=== PATIENT | male | born 1960 | race Caucasian/White ===

== ENCOUNTER 2023-10-04 13:08 | Inpatient (IN) | payer OTHER, SELFPAY ==
[2023-10-04 09:32] VITALS: BP 149/79
--- NOTE | 2023-10-04 10:22 | ED.GENMED ---
History of Present Illness
General
Chief Complaint: Vascular Symptoms
Source: patient
Exam Limitations: none
Time Seen by Provider: 10/04/23 09:37
Nursing documentation reviewed up to this point in time: agreed with
Travel History
Have you had any contact with someone who has COVID-19?: No
Do you have any symptoms of coronavirus? Fever > 100 degrees, chills, cough, shortness of breath, sore throat, loss of taste or smell, muscle aches, or headache?: No
History of Present Illness
History of Present Illness:
63-year-old male with history of hypertension, anemia and presumed vasculitis was sent in by rheumatology for what sounds to be a workup as an inpatient for his ongoing symptoms which have been over the last year.
What I can gather from the patient and his is that over the last year the patient started with joint pain which was presumed to be pseudogout. This was at an outside facility where he has had most of his workup. Following this joint
inflammation he ended up becoming anemic, having hemoglobin is dropped to 7 which was a gradual drop. He had a pretty thorough workup for this including a colonoscopy which was negative and ultimately received IV iron infusions and his hemoglobin
trended up, he never was given a transfusion. During some of that time he also started having L elevated creatinine level. At its worst it became in the high 3 range but has come down to 1.9 more recently. He has never seen nephrology. It sounds
as if a hematology oncologist was directing most of this workup through [facility]. About 2 months ago it sounds as if the turbine measurements engineer presume the patient could have vasculitis and started him on high-dose steroids, prednisone 60 mg for
about a month and he is down to 40 mg daily which she did take today. 2 weeks ago he ultimately saw a interior specialist through [facility] who ordered outpatient workup and the patient was called yesterday by Dr. Ramos regarding abnormal labs
and with instructions to come to the hospital to be admitted for IV pulse steroids as well as a renal biopsy. Patient is not feeling any different today than he had been. He is making urine, he has no chest pain or shortness of breath, no edema no
rash, no fever. He also was started on hydroxychloroquine 2 weeks ago by this interior specialist and has been taking that daily except missed today's dose.
Past History
Past History
ED Past Medical History: HTN and Other (anemia, vasculitis)
Social History
Tobacco: Non-smoker
Alcohol: None
Drug: None
Personal:
Living: with family
Review of Systems
Review of Systems
Allergies reviewed?: Yes
All Other Systems: Not applicable
Phy Exam
Physical Exam
Physical Exam:
GENERAL: Alert , in no apparent distress
EYE: pupils equal and reactive
NECK: Supple
ENT: o/p clr, mmm.
CARDIAC: Regular rate and rhythm .
LUNGS: Clear breath sounds bilaterally, no acute respiratory distress, no wheezes/rales/rhonchi
ABDOMEN: Soft, without focal tenderness, no r/g, no cvat, normal bowel sounds
NEUROLOGICAL: Alert and oriented, no focal neuro deficits
SKIN: Warm and dry, skin intact.
MUSCULOSKELETAL: No edema, well perfused. neg jorge's sign
PSYCH: Normal and appropriate interaction.
Course
Orders/Labs/Results
Orders:
Orders
10/04/23 Breakfast
2000 calorie (17 carb) Diabetic
At Your Request: Full Participation
10/04/23 10:03
Electrocardiogram (*1) Stat
Reason for Study: Other
Other Reason for Exam: Headache
EKG- Treatment ONCE
10/04/23 10:09
Consult Nephrology [NEPHROLOGY CONSULT] Urgent
Consulting Provider: Lyndsey Bal
Was physician already notified: Yes
Rheumatology Consult Urgent
Consulting Provider: Blaze San
Was physician already notified: Yes
10/04/23 11:27
Type+Screen Urgent
Complete Blood Count/With Diff Urgent
ESR [Erythrocyte Sed Rate] Urgent
Hepatitis B Surface Antibody Urgent
Hepatitis B Surface Antigen Urgent
Hepatitis C Antibody Urgent
10/04/23 11:28
JIMMY, IgG Reflex to HEp-2 [S] Urgent
ANCA - MPO/PR3 Ab Profile [S] Urgent
CRP [C-Reactive Protein] Urgent
Complement C3 Urgent
Complement C4 Urgent
Comprehensive Metabolic Panel Urgent
Double Stranded DNA Antibody IGG [ds-DNA Ab, IgG Reflex To Titer] [S] Urgent
Ferritin Urgent
Folate Urgent
Iron Urgent
PTT Urgent
Prothrombin Time Urgent
Total Iron Binding Urgent
Vitamin B12 Urgent
10/04/23 12:29
Add On- LAB Urgent
Tests Added?: iron, ferritin, tibc, folate, vit b12
10/04/23 12:46
Admit/Transfer Patient As Directed
Co-Sign Provider:
Level of Care: Inpatient admission
Assign to:: Medical/Surgical
Physician / Group: Reyna
Diagnosis: Vasculitis
Reason for Hospitalization: pulse dose steroids
Expected length of stay greater than two midnights?: Yes
ELOS- Estimated Length of Stay in days: 3
I certify the patient meets the requirements for IP care: Yes
10/04/23 12:47
Code Status As Directed
Resuscitation Status: Full Code
10/04/23 13:49
Acetaminophen [Tylenol] 650 mg PO Q4HPRN PRN
Dextrose 50%-Water [Dextrose 50% Syringe] 12.5 grams IV [id number] PRN
Glucagon [GlucaGen] 1 mg IM PRN PRN
10/04/23 13:49
DIETARY CONSULT Routine
Reason for Consult: diabetic diet
Diabetes Education Consult Routine
Reason for Consult: Monitor Instruction
Newly Diagnosed?: Yes
Monitor Needed?: Yes
IRAD CONSULT Routine
Consulting Provider: Armani Ambriz
Was physician already notified: Yes
Reason for consult: kidney biopsy
Activity As Directed
Activity Level: Out of Bed-Early Mobility
With Assistance
Bedside Glucose Monitoring As Directed
Frequency: AC&HS
Comment: Change to q6h if pt on TPN, tube feeding or not eating
Pneumatic Compression Sleeves As Directed
Type: Knee high
Vital Signs As Directed
Frequency: Per unit guidelines
Weight As Directed
Frequency: Daily
Smoking Cessation Counseling [RESP] Routine
DX Deep Vein Thrombosis Video Routine
10/04/23 15:00
Insulin Aspart Corrective Low [Novolog Flexpen-Low Resistance] See Protocol SC AC
10/04/23 16:00
MethylPREDNISolone. [Solu-Medrol] 1,000 mg 0.9% Sodium Chloride 250 ml [Nss] 250 ml IV Q24H
10/05/23 Breakfast
NPO
Allow oral meds: Yes
Allow clear liquids: 4hrs prior to procedure
NPO with Ice Chips: Yes
Comment: may have unrestricted clear liquid up to 4 hrs prior to scheduled procedure
Basic Metabolic Panel IN AM
Complete Blood Count/No Diff IN AM
Glycohemoglobin (HgbA1c) IN AM
Magnesium IN AM
10/05/23 08:00
Amlodipine [Norvasc] 5 mg PO DAILY
Abnormal Lab Results
10/04/23 10/04/23
11:27 11:28
WBC 13.8 H 10^3/uL
(4.8-10.8)
RBC 3.03 L 10^6/uL
(4.70-6.10)
Hgb 9.3 L g/dL
(13.0-18.0)
Hct 26.4 L %
(39.0-52.0)
RDW 17.8 H %
(11.5-14.5)
Abs Immat Gran (auto) 0.8 H 10^3/uL
(0-0.05)
Absolute Neuts (auto) 11.9 H 10^3/uL
(1.4-6.5)
Absolute Lymphs (auto) 0.7 L 10^3/uL
(1.2-3.4)
Immature Gran % 6.0 H %
(0-0.5)
Neutrophils % 86.2 H %
(42.2-75.2)
Lymphocytes % 4.7 L %
(20.5-51.1)
ESR 78 H mm/hour
(0-20)
Sodium 133 L mmol/L
(135-145)
BUN 54 H mg/dl
(9-20)
Creatinine 2.2 H mg/dL
(0.7-1.3)
Glucose 207 H mg/dl
(70-99)
TIBC 238 L ug/dl
(261-462)
Ferritin 1750.0 H ng/ml
(17.9-464.0)
Alkaline Phosphatase 131 H U/L
(38-126)
C-Reactive Protein 35.70 H mg/L
(0.0-10.00)
Folate > 20.0 H ng/ml
(2.76-20)
10/04/23 11:27
10/04/23 11:28
Vital Signs
Initial and Last Documented VS:
Initial Vital Signs
Temp Pulse Resp BP Pulse Ox
97.9 F 90 16 149/79 98
10/04/23 09:32 10/04/23 09:32 10/04/23 09:32 10/04/23 09:32 10/04/23 09:32
Last Documented Vital Signs
Temp Pulse Resp BP Pulse Ox
98 F 97 18 150/83 97
10/04/23 14:45 10/04/23 14:45 10/04/23 14:45 10/04/23 14:45 10/04/23 14:45
MDM/Problems Addressed
Differential Diagnosis Includes:
vaculitis, renal failure,
MDM/Problems Addressed:
63 y/o M
sent in by rheum for admission for pulse steroids for suspected vasculitis; has had ongoing elevated Cr and has not yet seen nephro and they wanted him to have renal bx; pt hasn't had his labs result here yet; this work up for vague symptoms
(fatigue, anemia, elevated cr) has been ongoing w/u for a year but recently saw our rheum 2 weeks ago;
i spoke with dr san from rheum who confirmed pt needs to be admitted; i also told dr. bal - she mentioned to ask IR if he could have the bx today but they can't fit him in. rheum recommended still to admit.
*Critical Care Note
Total Time (30-74mins, 75-104mins- exclusive of procedures): Not Applicable
ED Attending Note
-
Portions of this chart may have been created with voice recognition software.� Occasional wrong word or��sound alike� substitutions may have occurred due to the inherent limitations of voice recognition software.
Discharge Plan
Departure
Patient Disposition: Admit
Date of Disposition: 10/04/23
Time of Disposition: 12:18
Admit to: Med/Surg
Presentation/result/management discussed w/ accepting MD/DO: Hospitalist
Condition: Fair
Covid-19: Not Applicable
Discharge Problem:
CKD (chronic kidney disease), Anemia, Vasculitis
Interventions
Interventions:
*Risk Screen - Suicide Last Done: 10/04/23 11:25
*General Assessment Last Done: 10/04/23 09:32
*Neglect/Abuse Screening Last Done: 10/04/23 11:25
ED- Fall Risk Assessment Last Done: 10/04/23 11:25
*ED COVID-19 Vaccine History Last Done: 10/04/23 09:32
*Nursing Disposition Last Done: 10/04/23 14:04
ED- Cardiac Assessment Last Done: 10/04/23 11:25
ED- Pulmonary Assessment Last Done: 10/04/23 11:25
ED-Peripheral Vascular Assessment Last Done: 10/04/23 14:05
ED-Skin Assessment Last Done: 10/04/23 11:25
Discharge Date and Time
Discharge Date/Time: 10/04/23 14:05
[2023-10-04 11:43] LABS: % Basophils 0.3 % (0-2); % Eosinophils 0.1 % (0-6); % Lymphocytes 4.7 % (20.5-51.1); % Monocytes 2.7 % (1.7-9.3); % Neutrophils 86.2 % (42.2-75.2); Absolute Immature Granulocytes 0.8 10^3/uL (0-0.05); Absolute Lymphocytes 0.7 10^3/uL (1.2-3.4); Absolute Monocytes 0.4 10^3/uL (0.1-0.6); Absolute Neutrophils 11.9 10^3/uL (1.4-6.5); Hematocrit 26.4 % (39.0-52.0); Hemoglobin 9.3 g/dL (13.0-18.0); Mean Corp Hgb Conc. 35.2 g/dL (33.0-37.0); Mean Corpuscular Hgb 30.7 pg (27.0-31.0); Mean Corpuscular Volume 87.1 fL (80.0-94.0); Mean Platelet Volume 9.7 fL (7.4-10.4); Nucleated Red Blood Cells % 0 % (-); Platelet Count 180 10^3/uL (130-400); Red Blood Cell Count 3.03 10^6/uL (4.70-6.10); Red Cell Dist. Width 17.8 % (11.5-14.5); White Blood Cell Count 13.8 10^3/uL (4.8-10.8)
[2023-10-04 11:56] LABS: APTT 26.3 Sec (23.4-35.0); INR 1.03; PT 13.5 Sec (11.4-14.6)
[2023-10-04 12:00] LABS: ALT (SGPT) 25 U/L (0-50); AST (SGOT) 24 U/L (17-59); Albumin 3.7 g/dl (3.5-5.0); Alkaline Phosphatase 131 U/L (38-126); Blood Urea Nitrogen 54 mg/dl (9-20); Calcium 9.2 mg/dl (8.4-10.2); Carbon Dioxide 26 mmol/L (22-30); Chloride 103 mmol/L (98-107); Glucose 207 mg/dl (70-99); Potassium 4.8 mmol/L (3.5-5.1); Sodium 133 mmol/L (135-145); Total Bilirubin 0.7 mg/dl (0.2-1.3); Total Protein 6.3 g/dl (6.3-8.2); eGFR 33.04
[2023-10-04 12:15] LABS: Complement C3 96 mg/dl (88-165)
[2023-10-04 12:30] VITALS: BP 116/74
[2023-10-04 12:31] LABS: Erythrocyte Sed Rate 78 mm/hour (0-20)
--- NOTE | 2023-10-04 13:06 | HPS.HSE ---
Addendum entered and electronically signed by Onelia Orellana MD 10/04/23 14:05:
I saw and examined the patient.
The IMMIGRATION CONSULTANT's note was reviewed and I agree with the note.
Comment:
63 yo M sent in by outpatient rheumatology for pulse steroid due to concern of active vasculitis with�elevated�PR3 outpt.
Pulse steroid ordered, IR/renal consulted for renal biopsy.�
NPO past midnight.
Original Note:
Family Physician
-
Family Physician: Valentina Salmeron NP
Chief Complaint
-
Abnormal Blood Work
History of Present Illness
Patient is a 63 y/o male past medical history of hypertension who was sent to the emergency department today by rheumatology due to concerns for vasculitis requiring pulsed dose steroids. Patient reports unwell for the last several months. He
describes variable joint pains, with generalized weakness. He was found to have anemia and elevated creatinine, and was initially referred to hematology. Patient did receive 2 iron infusions with some improvement in his anemia. Patient was seen
by rheumatology 2 weeks ago and had extensive blood work taken. Last evening he received a phone call from rheumatology to go to the emergency department for pulse dose steroids due to the abnormal blood work. Review with rheumatology who
indicates PA-3 was elevated raising concern for Telma's granulomatosis. Hospitalists group was asked to evaluate the patient for admission to the hospital.
Medical History
Past Medical History
Past Medical History: Reports Other
Additional Past Medical History:
Essential Hypertension
Past Surgical History: Reports Other
Additional Past Surgical History:
Right ACL Repair
Right Ankle
Right Wrist
Social History
Tobacco: Smoker (5-10 cigarettes per day)
Alcohol: Occasional
Family History
Family History: Not pertinent
Allergies / Home Medications
Allergies reflects when Allergies were last updated in [facility].
Home Medications with original date entered in [facility]
Allergy/Medication List:
Allergies
Allergy/AdvReac Type Severity Reaction Status Date / Time
Penicillins Allergy Unknown Verified 10/04/23 09:36
Home Medications
acetaminophen 500 mg tablet (Tylenol Extra Strength) 1,000 mg PO BIDPRN PRN mild pain 10/04/23
amlodipine 5 mg tablet 5 mg PO DAILY 10/04/23
hydroxychloroquine 200 mg tablet 300 mg PO DAILY 10/04/23
prednisone 20 mg tablet 40 mg PO DAILY 10/04/23
sodium chloride 0.65 % nasal spray aerosol (Saline Nasal) 2 spray intranasal TID 10/04/23
Review of Systems
-
A 12 point ROS was completed and negative except as noted: Yes
Constitutional: Reports Weight Loss and Fatigue
Respiratory: Denies Cough or Trouble Breathing
Abdomen/GI: Denies Abdominal Pain, Nausea, Vomiting or Diarrhea
: Reports Dark Urine
Musculoskeletal: Reports Joint Pain
Physical Exam
Vital Signs
Vital Signs
Temp Pulse Resp BP Pulse Ox
97.9 F 75 18 116/74 98
10/04/23 09:32 10/04/23 12:30 10/04/23 12:30 10/04/23 12:30 10/04/23 12:30
Physical Exam
General: Comfortable and Conversant
HEENT: Anicteric and Moist mucous membranes
Respiratory: Clear and Non Labored Respirations
Cardiac: S1/S2, Regular Rhythm and Murmur
GI: Soft and Non Tender
Musculoskeletal: No Clubbing, No Cyanosis and No Edema
Skin: Warm and Dry
Neuro: Awake, Alert and Oriented
Laboratory Results
-
10/04/23 11:27
10/04/23 11:28
Laboratory Results
PT 13.5 Sec (11.4-14.6) 10/04/23 11:28
INR 1.03 10/04/23 11:28
APTT 26.3 Sec (23.4-35.0) 10/04/23 11:28
Total Bilirubin 0.7 mg/dl (0.2-1.3) 10/04/23 11:28
AST 24 U/L (17-59) 10/04/23 11:28
ALT 25 U/L (0-50) 10/04/23 11:28
Alkaline Phosphatase 131 U/L (38-126) H 10/04/23 11:28
Data Reviewed
-
Lab Data: Labs Reviewed by me
Impression/Plan
-
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
-Consult Rheumatology and Nephrology
-Continue Solu-Medrol 1000mg IV Daily x 3 days, then prednisone 60mg Daily
-Consult IR for kidney biopsy
Essential Hypertension
-Continue amlodipine with hold parameters
HYpeglycemia, likely steroid related
-Check HgbA1c
-Consult diabetic education as patient will need to monitor sugars while on steroids
-Monitor sugars and continue coverage insulin
Tobacco Use Disorder
-Encourage smoking cessation
DVT proph: SCDs
Code Status: Full Code
--- NOTE | 2023-10-04 13:17 | W.PN.RHM ---
Today's Communication / Plan
-
Assessment/Plan
-
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 Recommend renal bx.
-Start pulse steroids - 1000mg solumedrol x 3 days, then taper to 60 mg Prednisone to be discharged on
-Rituxan outpatient with Dr. Bennett.
Subjective Data
-
Pt is a 63 yo male hx HTN, anemia who presents to [place] ED for suspected vasculitis.Labs from 09/19 show elevated Cr at 1.9, +PR3 and low plts of 80, we recommended pt go to ED for further care. Pt notes scattered joint pains at hips and low
back. He also notes L flank pain x 3 days. Denies fevers, chills, abdominal pain, bloody stools, diarrhea or kidney stones. Notes ongoing clear rhinorrhea for several months. Also notes episodes of epistaxis since this past February. He notes dx anemia
several months ago, lost 30 lbs at that time. Mom with hx of primary biliary cholangitis. He smokes about 5-10 cigarettes daily.
Objective Data
-
Vital Signs
Temp Pulse Resp BP Pulse Ox
97.9 F 75 18 116/74 98
10/04/23 09:32 10/04/23 12:30 10/04/23 12:30 10/04/23 12:30 10/04/23 12:30
Laboratory Data
10/04/23 11:27
10/04/23 11:28
ESR 78 mm/hour (0-20) H 10/04/23 11:27
C-Reactive Protein 35.70 mg/L (0.0-10.00) H 10/04/23 11:28
Complement C3 96 mg/dl (88-165) 10/04/23 11:28
Complement C4 20.6 mg/dl (14-44) 10/04/23 11:28
Review of Systems
-
General: Chest Pain: No, Abdomen Pain: No, Shortness of Breath: No and Fever: No
Connective Tissue: Rash: No and Joint Pain: Yes
Physical Exam
-
Constitutional: Alert and Oriented
Skin: Rash (No rash, purpura or petichiae)
Heart: Other (Normal DP pulses b/l )
Sensory: Normal Throughout
Psych: Appropriate Behavior
Joints: No Synovitis Anywhere
[2023-10-04 13:51] VITALS: BMI 22.8
[2023-10-04 13:53] LABS: Iron 67 ug/dl (49-181)
[2023-10-04 14:03] LABS: Percent Saturation 28 % (20-50); Total Iron Binding Capacity 238 ug/dl (261-462)
[2023-10-04 14:07] LABS: Glucose - Point of Care 313 mg/dl (70-99)
[2023-10-04 14:45] VITALS: BP 150/83
[2023-10-04] MEDS: NOVOLOG FLEXPEN-LOW RESISTANCE 4 UNITS SC (15:01)
[2023-10-04 15:02] LABS: Folate > 20.0 ng/ml (2.76-20); Vitamin B12 323 pg/ml (239-931)
--- NOTE | 2023-10-04 15:43 | CON.MD ---
Consultation - Medical
-
Assessment:
JÚNIOR (Cr 2.2)
c/f GPA vasculitis (normal complements, JÚNIOR)
HTN
anemia
Plan:
- please obtain UA, UPCR, microalb: Cr, anti-GBM, SPEP, NIELS
- JIMMY, ANCA, MPO and PR3 pending. complements wnl.
- trend BMPs
- likely biopsy on Sunday as per IR schedule
- in the setting of kidney involvement, would consider initiation of rituximab if treating for GPA
[2023-10-04] MEDS: SOLU-MEDROL 258 MG IV (16:38)
[2023-10-04 16:54] LABS: Urine Albumin 1+ (Neg - Trace); Urine Bilirubin Negative (Negative); Urine Character Clear (Clear); Urine Color Yellow; Urine Glucose 3+ (Negative); Urine Ketone Negative (Negative); Urine Leukocyte Negative (Negative); Urine Nitrite Negative (Negative); Urine Occult Blood Negative (Negative); Urine Urobilinogen Negative (Neg - 1+); Urine pH 6.5 (5.0-9.0)
[2023-10-04 17:07] LABS: Urine Red Blood Cell 0-2 /HPF (0-2); Urine Squamous Cell 0-2 /LPF (Few)
[2023-10-04 17:08] LABS: Urine Bacteria Few (Negative); Urine White Cell 0-2 /HPF (0-5)
[2023-10-04 17:17] LABS: Glucose - Point of Care 237 mg/dl (70-99)
[2023-10-04] MEDS: NOVOLOG FLEXPEN-LOW RESISTANCE 2 UNITS SC (17:17)
[2023-10-04 17:20] LABS: Protein/creatinine Ratio 1.2; Urine Protein 73 mg/dl
[2023-10-04 17:38] LABS: Microalbumin, Random Urine 32.8 mg/dl (0.6-1.7)
--- NOTE | 2023-10-04 17:41 | PTCARENOTE ---
pt presents from ED via stretcher. pt is AAO*3, vss, room air. c/o Left flank pain dull. pt is oriented to the room. call ferreira within the reach. will continue plan of care.
[2023-10-04 19:13] LABS: Hepatitis B Surface Antigen Negative (Negative)
[2023-10-04 19:31] LABS: Hepatitis B Surface Antibody Negative; Hepatitis C Antibody Negative (Negative)
[2023-10-04 21:26] LABS: Glucose - Point of Care 296 mg/dl (70-99)
[2023-10-04 23:06] VITALS: BP 120/65
[2023-10-05] VITALS (16 sets, daily range): BP systolic 61–140; BP diastolic 57–81; BMI 22.6
[2023-10-05 07:07] LABS: Hematocrit 25.5 % (39.0-52.0); Mean Corp Hgb Conc. 35.3 g/dL (33.0-37.0); Mean Corpuscular Hgb 30.7 pg (27.0-31.0); Mean Platelet Volume 9.7 fL (7.4-10.4); Platelet Count 182 10^3/uL (130-400); Red Blood Cell Count 2.93 10^6/uL (4.70-6.10); Red Cell Dist. Width 17.2 % (11.5-14.5)
[2023-10-05 07:24] LABS: INR 1.09; PT 14.2 Sec (11.4-14.6)
[2023-10-05 07:31] LABS: Blood Urea Nitrogen 60 mg/dl (9-20); Calcium 9.1 mg/dl (8.4-10.2); Carbon Dioxide 24 mmol/L (22-30); Chloride 101 mmol/L (98-107); Estimated Creatinine Clearance 41 ml/min; Glucose 229 mg/dl (70-99); Magnesium 2.2 mg/dl (1.6-2.3); Potassium 4.8 mmol/L (3.5-5.1); Sodium 136 mmol/L (135-145); eGFR 42.03
[2023-10-05] MEDS: NORVASC 5 MG PO (08:30)
[2023-10-05 08:38] LABS: Glucose - Point of Care 245 mg/dl (70-99)
[2023-10-05] MEDS: NOVOLOG FLEXPEN-LOW RESISTANCE 2 UNITS SC (08:39)
[2023-10-05 08:56] LABS: Glycohemoglobin (HgbA1c) 8.4 % (4.0-5.6)
--- NOTE | 2023-10-05 13:43 | W.PN.HOSP.TC ---
Today's Communication/Plan
-
stress dose steroids
renal bx
glucose control- consulted DM management
Assessment / Plan
Assessment / Plan
Physical Exam
General: Comfortable and Conversant
HEENT: Anicteric and Moist mucous membranes
Respiratory: Clear and Non Labored Respirations
Cardiac: S1/S2, Regular Rhythm and Murmur
GI: Soft and Non Tender
Musculoskeletal: No Clubbing, No Cyanosis and No Edema
Skin: Warm and Dry
Neuro: Awake, Alert and Oriented
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
-Rheumatology and Nephrology on board
-Continue Solu-Medrol 1000mg IV Daily x 3 days (D2), then prednisone 60mg Daily
-Consult IR for kidney biopsy
--Rituxan outpatient with Dr. Bennett.
-F/u autoimmune labs
#Leukocytosis
-2/2 to steroids, ctm wbc and fever curve
Essential Hypertension
-Continue amlodipine with hold parameters
Hyperglycemia, likely steroid related
-HgbA1c - 8.4
-Consult diabetic education as patient will need to monitor sugars while on steroids
-Monitor sugars and continue coverage insulin
Tobacco Use Disorder
-Encourage smoking cessation
DVT proph: SCDs
Code Status: Full Code
Anticipated Discharge: Within 24 hours
Subjective/Interval History
-
Date of Service: October 05, 2023
No acute events overnight
Objective Data
-
Labs:
Laboratory Results
10/05/23
06:57
WBC 14.0 H
Hgb 9.0 L
Hct 25.5 L
Plt Count 182
PT 14.2
INR 1.09
Sodium 136
Potassium 4.8
Chloride 101
Carbon Dioxide 24
BUN 60 H
Creatinine 1.8 H
Glucose 229 H
Calcium 9.1
Vital Signs:
Vital Signs
Temp Pulse Resp BP Pulse Ox
98.1 F 68 16 132/75 97
10/05/23 12:20 10/05/23 12:30 10/05/23 12:30 10/05/23 12:30 10/05/23 12:30
I&O
10/04/23 10/05/23 10/06/23
06:59 06:59 06:59
Intake Total 480 / 480
Balance 480 / 480
Review of Systems
-
History Source: Patient
All other systems: Not reviewed unless documented
Data Reviewed
-
Labs: Labs Reviewed by me
--- NOTE | 2023-10-05 14:21 | PN.DE.MGMTRT ---
Insulin Management
- -
10/05/2023: Diabetes Management Consult
63 year old male with PMH of HTN and T2DM, sent to ER by his Patient Observer due to concerns for vasculitis requiring pulsed dose steroids.
Pt seen with -Collette at bedside. He states that he has been on chronic steroids for over 2 months for same reason.
Glucose on admission was 313, A1C 8.4%, Cr 2.2-->1.8 today, eGFR 42.03
He is on stress dose steroids- Solu-Medrol 1000mg IV Daily x 3 days (D2), then prednisone 60mg Daily
Current diabetes regimen includes low corrective insulin only. Discussed A1C, JÚNIOR, current glucose levels and need for optimal glucose control with pt and .
He is noted for steroid induced Hyperglycemia, FBG 229 this AM, all other glucose levels >200, requiring 2-4 units of corrective insulin.
He was NPO early today but as been cleared for a diet and is awaiting food from the kitchen.
Will start Lantus 15 units @ HS, AC NovoLog 6 units and cont low corrective if pt is on a diet.
Otherwise, HOLD AC NovoLog if pt is NPO and cont Lantus 15 units @HS with low corrective insulin while NPO.
Accuchek AC/HS.
Diabetes History
- -
Type of Diabetes: 2 requiring insulin
Pre-Admission Diabetes Regimen
10/05/23
06:57
Creatinine 1.8 H
Lab Results
Hemoglobin A1c 8.4 % (4.0-5.6) H 10/05/23 06:57
Insulin Pump Settings
IP Diabetes Regimen
10/04/23 10/04/23 10/05/23
17:15 21:25 06:57
Glucose 229 H
POC Glucose 237 H 296 H
10/05/23
08:37
Glucose
POC Glucose 245 H
Meal type: Lunch
Meal type: Breakfast
Meal type: Lunch
Amount consumed: 100%
Patient Education
[2023-10-05 14:37] LABS: Glucose - Point of Care 231 mg/dl (70-99)
[2023-10-05] MEDS: NOVOLOG FLEXPEN-LOW RESISTANCE SC ×2 (15:06→15:10)
--- NOTE | 2023-10-05 15:22 | CM ---
CM following re: d/c planning
Chart reviewed
CM met with the patient and his spouse at bedside; IA completed
Pt reports he and his spouse reside in a [place] with no ROBERT
HOME APPLIANCE TECH patient reports independence at baseline
Pt has no past hx of VN/SNF and the only DME owned is a spc for use if needed
Pt does confirm prescription coverage and rx's are filled at [facility] [address]
Pt PCP-[facility] and the patient sees CATHY Macdonald
No needs are anticipated once the patient is stable, CM will continue to follow patient progress and assist with any need at d/c as applicable
PLAN; d/c home no needs anticipated
--- NOTE | 2023-10-05 15:57 | PN.DE ---
Diabetes Education
- -
Diabetes Education-
This is a 63 year old male with new T2DM diagnosis, A1C of 8.4%
Met with Mr. Hernandez and his -Collette at bedside for monitor and insulin instructions. He has been provided with the Contour Next Ez glucometer. Reviewed proper testing technique for obtaining a blood glucose, new testing pattern given ACHS and
expected results as noted in take home education booklet. Discussed action of both rapid acting and long acting insulins as well as symptoms and treatment of hypoglycemia. Aware for meals to check blood glucose, inject NovoLog (short acting insulin)
in stomach and eat in 10-20 minutes and Long acting insulin in outer thigh, rotating sites. Aware to store insulin pens that are not in use in the refrigerator. Instructions with good return demonstration using the glucometer and insulin pen were
noted and result of 222 mg/dl at time of visit. Discussed importance of checking blood sugars 4x/day to assess food/medication effect on his BS, reducing CHO intake, being active and losing weight. Provided take home booklet and marked information.
Encouraged him to get Rx for CGM through his PCP as he seemed overwhelmed with the process of glucose monitoring 4 times a day.
He will need RX for test strips and lancets for the Contour Next Ez glucometer, testing 4x/day, NovoLog and Lantus as well as pen needles at discharge.
All questions and concerns were addressed and answered to their satisfaction.
--- NOTE | 2023-10-05 16:07 | W.PN.NEPH.PH ---
Today's Communication / Plan
-
follow BMP
Assessment/Plan
-
Assessment:
JÚNIOR (Cr 2.2)
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
HTN
anemia
Plan:
-await repeat serologies
-steroids per rheum, plans for OP RTX
-bx will be sent out sunday. hope for preliminary reading sunday
-so long as Cr is improving/stable we can follow as outpatient
-d/w pt and
-
-
Date of Service: October 05, 2023
CC / HPI / ROS
-
Chief Complaint:
JÚNIOR
History of Present Illness:
JÚNIOR/Cr down to 1.8
BP stable
s/p renal biopsy 10/05
on steroids
Review of Systems:
no CP/SOB
Labs
-
Labs:
WBC 14.0 10^3/uL (4.8-10.8) H 10/05/23 06:57
RBC 2.93 10^6/uL (4.70-6.10) L 10/05/23 06:57
Plt Count 182 10^3/uL (130-400) 10/05/23 06:57
Sodium 136 mmol/L (135-145) 10/05/23 06:57
Potassium 4.8 mmol/L (3.5-5.1) 10/05/23 06:57
Chloride 101 mmol/L (98-107) 10/05/23 06:57
Carbon Dioxide 24 mmol/L (22-30) 10/05/23 06:57
BUN 60 mg/dl (9-20) H 10/05/23 06:57
Creatinine 1.8 mg/dL (0.7-1.3) H 10/05/23 06:57
eGFR 42.03 10/05/23 06:57
Glucose 229 mg/dl (70-99) H 10/05/23 06:57
Calcium 9.1 mg/dl (8.4-10.2) 10/05/23 06:57
Albumin 3.7 g/dl (3.5-5.0) 10/04/23 11:28
Physical Exam
-
Vital Signs:
Vital Signs
Temp Pulse Resp BP Pulse Ox
98 F 73 18 135/81 98
10/05/23 16:00 10/05/23 16:00 10/05/23 16:00 10/05/23 16:00 10/05/23 16:00
Cardiovascular:: Regular rate and rhythm
Respiratory:: Bilateral: Coarse
Lung Excursion:: Normal
Abdomen:: Nontender and Soft
Bowel Sounds:: Normal
Extremity Edema:: None: Bilateral:
[2023-10-05] MEDS: SOLU-MEDROL 258 MG IV (16:40)
[2023-10-05 18:27] LABS: Glucose - Point of Care 324 mg/dl (70-99)
[2023-10-05] MEDS: NOVOLOG FLEXPEN-LOW RESISTANCE 4 UNITS SC (18:36)
[2023-10-05 18:39] LABS: Hematocrit 27.5 % (39.0-52.0); Hemoglobin 9.7 g/dL (13.0-18.0)
[2023-10-05 22:01] LABS: Glucose - Point of Care 404 mg/dl (70-99)
[2023-10-05 22:29] LABS: Glucose 353 mg/dl (70-99)
[2023-10-05] MEDS: NOVOLOG FLEXPEN 5 UNITS SC (22:56)
[2023-10-05] MEDS: LANTUS 0.149999999999999994 UNITS SC (22:57)
[2023-10-06 00:46] LABS: ds-DNA Ab, IgG Reflex To Titer 8 IU (0-24)
[2023-10-06 01:09] LABS: Glucose - Point of Care 305 mg/dl (70-99)
[2023-10-06] MEDS: NOVOLOG FLEXPEN 5 UNITS SC (01:41)
[2023-10-06 01:53] LABS: Myeloperoxidase Antibody 0 AU/mL (0-19); Serine Protease-3, IgG 135 AU/mL (0-19)
[2023-10-06 02:31] VITALS: BP 108/67
[2023-10-06 02:39] LABS: ANA, IgG Reflex to HEp-2 None Detected (None Detected)
[2023-10-06 03:53] LABS: Glucose - Point of Care 211 mg/dl (70-99)
[2023-10-06 03:55] VITALS: BMI 22.7
[2023-10-06 04:27] VITALS: BP 132/75
[2023-10-06 07:20] VITALS: BP 132/69
[2023-10-06 07:29] LABS: Hematocrit 25.3 % (39.0-52.0); Hemoglobin 8.9 g/dL (13.0-18.0); Mean Corp Hgb Conc. 35.2 g/dL (33.0-37.0); Mean Corpuscular Hgb 31.1 pg (27.0-31.0); Mean Corpuscular Volume 88.5 fL (80.0-94.0); Mean Platelet Volume 11.5 fL (7.4-10.4); Platelet Count 149 10^3/uL (130-400); Red Blood Cell Count 2.86 10^6/uL (4.70-6.10); White Blood Cell Count 16.6 10^3/uL (4.8-10.8)
[2023-10-06 07:55] LABS: Glucose - Point of Care 279 mg/dl (70-99)
[2023-10-06 08:09] LABS: Blood Urea Nitrogen 64 mg/dl (9-20); Calcium 8.8 mg/dl (8.4-10.2); Carbon Dioxide 23 mmol/L (22-30); Chloride 102 mmol/L (98-107); Estimated Creatinine Clearance 35 ml/min; Glucose 216 mg/dl (70-99); Potassium 4.5 mmol/L (3.5-5.1); Sodium 132 mmol/L (135-145); eGFR 34.93
[2023-10-06] MEDS: NORVASC 5 MG PO (08:24)
[2023-10-06] MEDS: NOVOLOG FLEXPEN 6 UNITS SC ×2 (08:24→11:42)
[2023-10-06] MEDS: NOVOLOG FLEXPEN-LOW RESISTANCE 300 UNITS SC (08:24)
--- NOTE | 2023-10-06 10:43 | W.PN.NEPH.PH ---
Today's Communication / Plan
-
dc planning
Assessment/Plan
-
Assessment:
JÚNIOR (Cr 2.2)
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
HTN
anemia
Plan:
-serologies suggest GPA
-steroids per rheum, plans for OP RTX, po pred
-bx will be sent out sunday. hope for preliminary reading sunday
-so long as Cr is improving/stable can follow as outpatient
-He initially tries to to get [facility] appt, but could not, so got [facility] appt in December. He can decide where he wants to get renal f/u. He can call our office if he wants to be seen in [place].
-
-
Date of Service: October 06, 2023
CC / HPI / ROS
-
Chief Complaint:
JÚNIOR
History of Present Illness:
JÚNIOR/Cr stable 2.1
BP stable
s/p renal biopsy 2/2
on steroids IV
Review of Systems:
no CP/SOB
Labs
-
Labs:
WBC 16.6 10^3/uL (4.8-10.8) H 10/06/23 06:32
RBC 2.86 10^6/uL (4.70-6.10) L 10/06/23 06:32
Hgb 8.9 g/dL (13.0-18.0) L 10/06/23 06:32
Hct 25.3 % (39.0-52.0) L 10/06/23 06:32
Plt Count 149 10^3/uL (130-400) 10/06/23 06:32
Sodium 132 mmol/L (135-145) L 10/06/23 06:32
Potassium 4.5 mmol/L (3.5-5.1) 02/03/24 06:32
Chloride 102 mmol/L (98-107) 10/06/23 06:32
Carbon Dioxide 23 mmol/L (22-30) 10/06/23 06:32
BUN 64 mg/dl (9-20) H 10/06/23 06:32
Creatinine 2.1 mg/dL (0.7-1.3) H 10/06/23 06:32
eGFR 34.93 10/06/23 06:32
Glucose 216 mg/dl (70-99) H 10/06/23 06:32
Calcium 8.8 mg/dl (8.4-10.2) 10/06/23 06:32
Albumin 3.7 g/dl (3.5-5.0) 10/04/23 11:28
Physical Exam
-
Vital Signs:
Vital Signs
Temp Pulse Resp BP Pulse Ox
98.6 F 62 18 132/69 100
10/06/23 07:20 10/06/23 07:20 10/06/23 07:20 10/06/23 07:20 10/06/23 07:20
Cardiovascular:: Regular rate and rhythm
Respiratory:: Bilateral: Coarse
Lung Excursion:: Normal
Abdomen:: Nontender and Soft
Bowel Sounds:: Normal
Extremity Edema:: None: Bilateral:
[2023-10-06 11:00] VITALS: BP 126/65
--- NOTE | 2023-10-06 11:16 | W.PN.HOSP.TC ---
Addendum entered and electronically signed by Denny Hester MD 10/07/23 15:06:
[id number]
Original Note:
Today's Communication/Plan
-
Lantus, NovoLog as directed
Prednisone 60 mg daily starting tomorrow
Follow-up CBC, BMP outpatient
Follow-up PCP, rheumatology, nephrology outpatient
Follow-up biopsy results
Assessment / Plan
Assessment / Plan
Physical Exam
General: Comfortable and Conversant
HEENT: Anicteric and Moist mucous membranes
Respiratory: Clear and Non Labored Respirations
Cardiac: S1/S2, Regular Rhythm and Murmur
GI: Soft and Non Tender
Musculoskeletal: No Clubbing, No Cyanosis and No Edema
Skin: Warm and Dry
Neuro: Awake, Alert and Oriented
Vasculitis
JÚNIOR
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
-Rheumatology and Nephrology on board
-Continue Solu-Medrol 1000mg IV Daily x 3 days (D3), then prednisone 60mg Daily
-Renal biopsy ollow-up pathology outpatient
--Rituxan outpatient with Dr. Bennett.
-F/u autoimmune labs
� Follow-up CBC, BMP in 3 to 5 days with nephrology, rheumatology
-Follow-up nephrology, rheumatology outpatient
#Leukocytosis
-2/2 to steroids, ctm wbc and fever curve
Essential Hypertension
-Continue amlodipine with hold parameters
Hyperglycemia, likely steroid related
-HgbA1c - 8.4
-Consult diabetic education as patient will need to monitor sugars while on steroids
� Lantus, NovoLog on discharge
-Monitor sugars and continue coverage insulin
Tobacco Use Disorder
-Encourage smoking cessation
DVT proph: SCDs
Code Status: Full Code
More than 30 minutes spent in discharge including
Final examination of the patient
Summarizing hospital stay
Instructions for continuing care to all relevant caregivers
Preparation of discharge records, prescriptions, and referral forms
Total time spent (35 in minutes):
Anticipated Discharge: Today
Subjective/Interval History
-
Date of Service: October 06, 2023
Biopsy yesterday, tolerated well.
Objective Data
-
Labs:
Laboratory Results
10/06/23
06:32
WBC 16.6 H
Hgb 8.9 L
Hct 25.3 L
Plt Count 149
Sodium 132 L
Potassium 4.5
Chloride 102
Carbon Dioxide 23
BUN 64 H
Creatinine 2.1 H
Glucose 216 H
Calcium 8.8
Vital Signs:
Vital Signs
Temp Pulse Resp BP Pulse Ox
98.1 F 71 18 126/65 98
10/06/23 11:00 10/06/23 11:00 10/06/23 11:00 10/06/23 11:00 10/06/23 11:00
I&O
10/05/23 10/06/23 10/07/23
06:59 06:59 06:59
Intake Total 480 / 480 870 / 870
Output Total 400 / 400
Balance 480 / 480 470 / 470
Review of Systems
-
History Source: Patient
All other systems: Not reviewed unless documented
Data Reviewed
-
Ultrasound: Image personally visualized and interpreted and Report Reviewed by me
Labs: Labs Reviewed by me
--- NOTE | 2023-10-06 11:19 | W.DS.TRANS ---
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
-
Discharge Instructions:
Discharge Diagnosis/Procedures
Vasculitis concerning for GPA
Diet Low Cholesterol,Low Fat,Diabetic, Carb
Controlled
Activity As tolerated
Blood Work cbc, bmp in 3-5 days with nephrology
Instructions:
Stand-Alone Forms:
Changes to Home Medications: Yes
Discharge Medications:
DC Medications w/original date entered in [email or web address]
acetaminophen 500 mg tablet (Tylenol Extra Strength) 1,000 mg PO BIDPRN PRN mild pain 10/04/23
amlodipine 5 mg tablet 5 mg PO DAILY Blood Pressure 10/04/23
hydroxychloroquine 200 mg tablet 300 mg PO DAILY 10/04/23
sodium chloride 0.65 % nasal spray aerosol (Saline Nasal) 2 spray intranasal TID Congestion 10/04/23
blood sugar diagnostic (Contour Next Test Strips) ##130 10/05/23
lancets (Microlet Lancet) #130 ea 10/05/23
pen needle, diabetic 32 gauge x 532' (BD Ultra-Fine Janelle Pen Needle) ##200 10/05/23
insulin aspart U-100 100 unit/mL (3 mL) subcutaneous pen (Novolog FlexPen U-100 Insulin aspart) 6 unit (0.06 mL) SC AC #15 mL 10/06/23
insulin glargine 100 unit/mL (3 mL) subcutaneous pen (Lantus Solostar U-100 Insulin) 15 unit (0.15 mL) SC QPM #15 mL 10/06/23
prednisone 20 mg tablet 60 mg PO DAILY 14 days #42 tabs 10/06/23
Home Medication Changes
blood sugar diagnostic (Contour Next Test Strips) ##130 10/05/23
lancets (Microlet Lancet) #130 ea 10/05/23
pen needle, diabetic 32 gauge x 5/32' (BD Ultra-Fine Janelle Pen Needle) ##200 10/05/23
insulin aspart U-100 100 unit/mL (3 mL) subcutaneous pen (Novolog FlexPen U-100 Insulin aspart) 6 unit (0.06 mL) SC AC #15 mL 10/06/23
insulin glargine 100 unit/mL (3 mL) subcutaneous pen (Lantus Solostar U-100 Insulin) 15 unit (0.15 mL) SC QPM #15 mL 10/06/23
prednisone 20 mg tablet 60 mg PO DAILY 14 days #42 tabs 10/06/23
Pending Results: No
[2023-10-06 11:30] LABS: Glucose - Point of Care 413 mg/dl (70-99)
[2023-10-06 11:30] LABS: Glucose - Point of Care 404 mg/dl (70-99)
[2023-10-06] MEDS: SOLU-MEDROL 258 MG IV (11:42)
[2023-10-06] MEDS: NOVOLOG FLEXPEN-LOW RESISTANCE 6 UNITS SC (11:42)
[2023-10-06 12:11] LABS: Glucose 358 mg/dl (70-99)
--- NOTE | 2023-10-06 12:51 | CM ---
Met with patient at bedside; was on speaker phone
will provide transport home
Plan: discharge to home without services
--- NOTE | 2023-10-06 13:52 | PTCARENOTE ---
Patient's lunch time accucheck read high- stat blood glucose ordered and came back 358. Dr. Nice made aware. Patient is receiving high dose steroids.
[2023-10-07 16:04] LABS: Glomerular Base Membrane Ab 0 AU/mL (0-19)
[2023-10-08 19:27] LABS: 24 Hour Urine Total Volume Random mL; Urine Collection Length Random hr; Urine Free Lambda Light Chains 21.61 mg/L (0.00-3.79)
[2023-10-08 21:00] LABS: Alpha 2 Globulin 1.03 g/dL (0.48-1.05); SPEP IFE Reflex Not Done
== END 2023-10-06 14:18 | disposition home or self-care (01) | DRG 543 ==
LOC: 4 EAST ACU 13:08
PROVIDERS: Physician Assistant; Physician Assistant Medical; Radiology Vascular & Interventional Radiology; ADMITTING PHYSICIAN Internal Medicine; ATTENDING PHYSICIAN Internal Medicine; EMERGENCY PHYSICIAN Emergency Medicine; FAMILY PHYSICIAN Nurse Practitioner Family; OTHER PHYSICIAN Student in an Organized Health Care Education/Training Program
PROC: 0TB13ZX Excision of Left Kidney, Percutaneous Approach, Diagnostic (ICD-10-PCS; 2023-10-05)
DX: M31.31 Wegener's granulomatosis with renal involvement (principal); N17.9 Acute kidney failure, unspecified; I12.9 Hypertensive chronic kidney disease with stage 1 through stage 4 chronic kidney disease, or unspecified chronic kidney disease; I77.82 Antineutrophilic cytoplasmic antibody [ANCA] vasculitis; D64.9 Anemia, unspecified; N18.9 Chronic kidney disease, unspecified; F17.210 Nicotine dependence, cigarettes, uncomplicated
CPT/HCPCS: 50200; 76770; 76942; 80048; 80053; 81003; 81015; 82043; 82570; 82607; 82728; 82746; 82947; 82962; 83036; 83516; 83521; 83540; 83550; 83735; 84155; 84156; 84165; 85014; 85018; 85025; 85027; 85610; 85652; 85730; 86038; 86140; 86160; 86225; 86335; 86706; 86803; 86850; 86900; 86901; 87340; 93005; 99152; 99153; 99285

== ENCOUNTER → 2023-10-15 08:54 | Outpatient (REF) | payer OTHER, SELFPAY ==
[2023-10-18 02:18] LABS: Quantiferon Mitogen minus NIL 1.13 IU/mL; Quantiferon NIL 0.01 IU/mL; Quantiferon Plus TB1 minus NIL 0.01 IU/mL (0.00-0.34); Quantiferon Plus TB2 minus NIL 0.01 IU/mL (0.00-0.34); Quantiferon TB Gold Plus Negative (Negative)
== END ==
LOC: REG 08:54
PROVIDERS: ATTENDING PHYSICIAN Internal Medicine; FAMILY PHYSICIAN Nurse Practitioner Family
DX: M06.4 Inflammatory polyarthropathy (principal); R70.0 Elevated erythrocyte sedimentation rate; R79.89 Other specified abnormal findings of blood chemistry; Z22.7 Latent tuberculosis
CPT/HCPCS: 36415; 86480

== ENCOUNTER 2023-11-30 17:01 | Emergency (ER) | payer OTHER, SELFPAY ==
[2023-11-30 17:05] VITALS: BP 145/80
[2023-11-30] MEDS: ZOFRAN 4 MG IV (19:12)
[2023-11-30] MEDS: MORPHINE SULFATE 4 MG IV (19:13)
[2023-11-30 19:29] LABS: Hematocrit 24.2 % (39.0-52.0); Hemoglobin 8.5 g/dL (13.0-18.0); Mean Corp Hgb Conc. 35.1 g/dL (33.0-37.0); Mean Corpuscular Hgb 31.7 pg (27.0-31.0); Mean Corpuscular Volume 90.3 fL (80.0-94.0); Mean Platelet Volume 9.7 fL (7.4-10.4); Platelet Count 215 10^3/uL (130-400); Red Blood Cell Count 2.68 10^6/uL (4.70-6.10); Red Cell Dist. Width 15.1 % (11.5-14.5); White Blood Cell Count 16.4 10^3/uL (4.8-10.8)
[2023-11-30 19:37] LABS: ALT (SGPT) 21 U/L (0-50); AST (SGOT) 21 U/L (17-59); Albumin 3.3 g/dl (3.5-5.0); Alkaline Phosphatase 150 U/L (38-126); Blood Urea Nitrogen 51 mg/dl (9-20); Carbon Dioxide 25 mmol/L (22-30); Chloride 99 mmol/L (98-107); Glucose 194 mg/dl (70-99); Potassium 4.7 mmol/L (3.5-5.1); Sodium 130 mmol/L (135-145); Total Bilirubin 0.5 mg/dl (0.2-1.3); Total Protein 5.7 g/dl (6.3-8.2); eGFR 56.83
[2023-11-30 20:57] VITALS: BP 129/74
[2023-11-30] MEDS: VIBRAMYCIN 200 MG PO (21:18)
--- NOTE | 2023-11-30 21:20 | ED.GENMED ---
History of Present Illness
General
Chief Complaint: Back Pain
Time Seen by Provider: 11/30/23 17:58
Travel History
Have you had any contact with someone who has COVID-19?: No
Do you have any symptoms of coronavirus? Fever > 100 degrees, chills, cough, shortness of breath, sore throat, loss of taste or smell, muscle aches, or headache?: No
Past History
Past History
ED Past Medical History: HTN and Other (anemia, vasculitis)
Social History
Tobacco: Non-smoker
Alcohol: None
Drug: None
Personal:
Living: with family
Course
Orders/Labs/Results
Orders:
Orders
11/30/23 18:18
Ketorolac [Toradol] 30 mg IV NOW STA
Lumbar Spine Complete, 4 View [CR Lumbar Spine Comp Min 4 Vw*] Urgent
Comment:
Reason For Exam: pain
Thoracic Spine 3 Views CR [CR Thoracic Spine 3 Views] Urgent
Comment:
Reason For Exam: pain
11/30/23 19:06
Ondansetron Injectable [Zofran] 4 mg .ROUTE .STK-MED ONE
11/30/23 19:07
Morphine Sulfate 4 mg .ROUTE .STK-MED ONE
11/30/23 19:12
Ondansetron Injectable [Zofran] 4 mg IV NOW STA
11/30/23 19:13
Morphine Sulfate 4 mg IV NOW STA
CR Chest - 2 Views Urgent
Comment:
Reason For Exam: possible pneumonia RUL
11/30/23 19:17
CMP [Comprehensive Metabolic Panel] Urgent
Complete Blood Count/No Diff Urgent
11/30/23 21:10
Doxycycline [Vibramycin] 200 mg PO NOW STA
Abnormal Lab Results
11/30/23
19:17
WBC 16.4 H 10^3/uL
(4.8-10.8)
RBC 2.68 L 10^6/uL
(4.70-6.10)
Hgb 8.5 L g/dL
(13.0-18.0)
Hct 24.2 L %
(39.0-52.0)
MCH 31.7 H pg
(27.0-31.0)
RDW 15.1 H %
(11.5-14.5)
Sodium 130 L mmol/L
(135-145)
BUN 51 H mg/dl
(9-20)
Creatinine 1.4 H mg/dL
(0.7-1.3)
Glucose 194 H mg/dl
(70-99)
Alkaline Phosphatase 150 H U/L
(38-126)
Total Protein 5.7 L g/dl
(6.3-8.2)
Albumin 3.3 L g/dl
(3.5-5.0)
11/30/23 19:17
11/30/23 19:17
Vital Signs
Initial and Last Documented VS:
Initial Vital Signs
Temp Pulse Resp BP Pulse Ox
98.1 F 98 18 145/80 98
11/30/23 17:05 11/30/23 17:05 11/30/23 17:05 11/30/23 17:05 11/30/23 17:05
Last Documented Vital Signs
Temp Pulse Resp BP Pulse Ox
98.1 F 71 18 129/74 97
11/30/23 17:05 11/30/23 20:57 11/30/23 17:05 11/30/23 20:57 11/30/23 20:57
ED Attending Note
ED Attending Note
Patient seen and examined by attending physician: Yes
I performed the substantive portion of visit, reviewed & personally made and approve the management plan that is documented in note by myself or ANAY.: Yes
I performed a history and physical exam of patient and discussed management with resident, I reviewed resident's note and agree with documented findings and plan of care.: Yes
ED Attending Note:
63-year-old gentleman with history of vasculitis, follows with environmental scientist, chronically maintained on prednisone and more recently beginning 2 weeks ago was started on prophylactic atovaquone.
He has hx of thoracic compression fractures.
He complains of over 2-week history of harsh cough occasionally productive of green phlegm accompanied with mid to upper back pain. He is also noted some low back pain with left leg pain that began yesterday. No falls. No fever nor chills.
Intermittent nonproductive cough is noted otherwise patient is bright and alert, pleasant, appears in no acute distress.
Respirations are easy nonlabored.
Chest x-ray shows right upper lobe infiltrate and with history of cough, green phlegm I suspect community-acquired pneumonia. No history of smoking, no recent travel. No hemoptysis.
Thoracic spine x-ray demonstrates compression deformities of 2 thoracic vertebrae; patient reports known history of thoracic compression vertebral fractures. Unclear if these have worsened versus chronic.
He has no neurologic deficits.
Labs are remarkable for moderately elevated white blood cell count of 16.4, moderate but stable anemia and stable chronic kidney disease.
Will treat pneumonia with a 10-day course of doxycycline. Will add a short course of Percocet for pain relief.
Recommend he continue atovaquone but x-ray is not consistent with pneumocystis pneumonia.
-
Portions of this chart may have been created with voice recognition software.� Occasional wrong word or��sound alike� substitutions may have occurred due to the inherent limitations of voice recognition software.
Discharge Plan
Departure
Patient Disposition: Home (Routine Discharge)
Date of Disposition: 11/30/23
Time of Disposition: 21:11
Patient with high blood pressure during this ER visit?: No
Condition: Good
Covid-19: Not Applicable
Discharge Problem:
Pneumonia
Instructions: Pneumonia
Prescriptions:
New
doxycycline hyclate 100 mg capsule
100 mg PO BID Qty: 20 0RF
oxycodone-acetaminophen [Percocet] 5-325 mg tablet
1 tab PO Q4HPRN PRN (Reason: pain) Qty: 8 0RF
No Action
amlodipine 5 mg Tablet
5 mg PO DAILY
acetaminophen [Tylenol Extra Strength] 500 mg Tablet
1,000 mg PO BIDPRN PRN (Reason: mild pain)
hydroxychloroquine 200 mg Tablet
300 mg PO DAILY
Hold Instructions: Resume on 10/24/23. await rheumatology to restart if desired
Saline Nasal 0.65 % Aerosol,[place]
2 spray INTRANASAL TID
insulin aspart U-100 [Novolog FlexPen U-100 Insulin] 100 unit/mL (3 mL) Insulin Pen
6 unit SC AC Qty: 15 0RF
insulin glargine [Lantus Solostar U-100 Insulin] 100 unit/mL (3 mL) insulin pen
15 unit SC QPM Qty: 15 0RF
prednisone 20 mg tablet
60 mg PO DAILY 14 Days Qty: 42 0RF
Referrals:
[facility]UL[facility] SAMANIEGO [Other] - Call in 1-3 days for appt
Activity Restrictions/Additional Instructions:
Return to the emergency department immediately for any changes in/worsening of your symptoms.
Discharge Date and Time
Print Language: GREEK
--- NOTE | 2023-11-30 22:09 | ED.GENMED ---
History of Present Illness
<Digna Lou NP - Last Filed: 11/30/23 22:21>
General
Chief Complaint: Back Pain
Source: patient
Exam Limitations: none
Time Seen by Provider: 11/30/23 17:58
Nursing documentation reviewed up to this point in time: agreed with
Travel History
Have you had any contact with someone who has COVID-19?: No
Do you have any symptoms of coronavirus? Fever > 100 degrees, chills, cough, shortness of breath, sore throat, loss of taste or smell, muscle aches, or headache?: No
History of Present Illness
History of Present Illness:
Patient to ED with complaint of middle back pain. States he has had some mild discomfort for weeks but it has gotten progressively worse. He has known compression fx's of middle and lower back. He is unsure if these are worsening. No history of
trauma. Denies fever/chiills. Reports swelling to his feet. Brought to ED by spouse for eval. New diagnosis of vasculitis. Has been experiencing numbness and tingling of toes for the past year. Has had extensive outpatient workup for this.
Chronic anemia and kidney disease.
Past History
<Digna Lou EMBOSSING MACHINE OPERATOR HELPER - Last Filed: 11/30/23 22:21>
Past History
ED Past Medical History: HTN, IDDM and Other (anemia, vasculitis)
Social History
Tobacco: Non-smoker
Alcohol: None
Drug: None
Personal:
Living: with family
Review of Systems
<Digna Lou NP - Last Filed: 11/30/23 22:21>
Review of Systems
Allergies reviewed?: Yes
All Other Systems: ROS reviewed and negative except as documented in HPI and ROS
Constitutional: Reports no symptoms
EENT: Reports no symptoms
Respiratory: Reports cough
Cardiac: Reports no symptoms
ABD/GI: Reports no symptoms
: Reports no symptoms
Musculoskeletal: Reports back pain (middle back pain)
Skin: Reports no symptoms
Neurological: Reports numbness (numbness and tingling to toes (chronic))
Psychiatric: Reports no symptoms
Phy Exam
<Digna Lou NP - Last Filed: 11/30/23 22:21>
General Physical Exam
General Presentation: well appearing and no apparent distress
General age: appears stated age
General Skin: warm and dry
General Habitus: normal
General Mental: alert
General Hydration: appears well hydrated
Gastrointestinal Exam
Gastrointestinal Exam: normal bowel sounds, non tender, soft and no organomegaly
Musculoskeletal Exam
Musculoskeletal Exam: full ROM, no edema and neuro vasc intact
Skin Exam
Skin Exam: normal color, warm/dry and no rash
Psychiatric Exam
Psychiatric Exam: normal mood/affect
Course
<Digna Lou EMBOSSING MACHINE OPERATOR HELPER - Last Filed: 11/30/23 22:21>
Orders/Labs/Results
Orders:
Orders
11/30/23 18:18
Ketorolac [Toradol] 30 mg IV NOW STA
Lumbar Spine Complete, 4 View [CR Lumbar Spine Comp Min 4 Vw*] Urgent
Comment:
Reason For Exam: pain
Thoracic Spine 3 Views CR [CR Thoracic Spine 3 Views] Urgent
Comment:
Reason For Exam: pain
11/30/23 19:06
Ondansetron Injectable [Zofran] 4 mg .ROUTE .STK-MED ONE
11/30/23 19:07
Morphine Sulfate 4 mg .ROUTE .STK-MED ONE
11/30/23 19:12
Ondansetron Injectable [Zofran] 4 mg IV NOW STA
11/30/23 19:13
Morphine Sulfate 4 mg IV NOW STA
CR Chest - 2 Views Urgent
Comment:
Reason For Exam: possible pneumonia RUL
11/30/23 19:17
CMP [Comprehensive Metabolic Panel] Urgent
Complete Blood Count/No Diff Urgent
11/30/23 21:10
Doxycycline [Vibramycin] 200 mg PO NOW STA
Abnormal Lab Results
11/30/23
19:17
WBC 16.4 H 10^3/uL
(4.8-10.8)
RBC 2.68 L 10^6/uL
(4.70-6.10)
Hgb 8.5 L g/dL
(13.0-18.0)
Hct 24.2 L %
(39.0-52.0)
MCH 31.7 H pg
(27.0-31.0)
RDW 15.1 H %
(11.5-14.5)
Sodium 130 L mmol/L
(135-145)
BUN 51 H mg/dl
(9-20)
Creatinine 1.4 H mg/dL
(0.7-1.3)
Glucose 194 H mg/dl
(70-99)
Alkaline Phosphatase 150 H U/L
(38-126)
Total Protein 5.7 L g/dl
(6.3-8.2)
Albumin 3.3 L g/dl
(3.5-5.0)
11/30/23 19:17
11/30/23 19:17
Vital Signs
Initial and Last Documented VS:
Initial Vital Signs
Temp Pulse Resp BP Pulse Ox
98.1 F 98 18 145/80 98
11/30/23 17:05 11/30/23 17:05 11/30/23 17:05 11/30/23 17:05 11/30/23 17:05
Last Documented Vital Signs
Temp Pulse Resp BP Pulse Ox
98.1 F 71 18 129/74 97
11/30/23 17:05 11/30/23 20:57 11/30/23 17:05 11/30/23 20:57 11/30/23 20:57
<Gretchen Brown, DO - Last Filed: 12/01/23 02:00>
Orders/Labs/Results
Orders:
Orders
11/30/23 18:18
Ketorolac [Toradol] 30 mg IV NOW STA
Lumbar Spine Complete, 4 View [CR Lumbar Spine Comp Min 4 Vw*] Urgent
Comment:
Reason For Exam: pain
Thoracic Spine 3 Views CR [CR Thoracic Spine 3 Views] Urgent
Comment:
Reason For Exam: pain
11/30/23 19:06
Ondansetron Injectable [Zofran] 4 mg .ROUTE .STK-MED ONE
11/30/23 19:07
Morphine Sulfate 4 mg .ROUTE .STK-MED ONE
11/30/23 19:12
Ondansetron Injectable [Zofran] 4 mg IV NOW STA
11/30/23 19:13
Morphine Sulfate 4 mg IV NOW STA
CR Chest - 2 Views Urgent
Comment:
Reason For Exam: possible pneumonia RUL
11/30/23 19:17
CMP [Comprehensive Metabolic Panel] Urgent
Complete Blood Count/No Diff Urgent
11/30/23 21:10
Doxycycline [Vibramycin] 200 mg PO NOW STA
Abnormal Lab Results
11/30/23
19:17
WBC 16.4 H 10^3/uL
(4.8-10.8)
RBC 2.68 L 10^6/uL
(4.70-6.10)
Hgb 8.5 L g/dL
(13.0-18.0)
Hct 24.2 L %
(39.0-52.0)
MCH 31.7 H pg
(27.0-31.0)
RDW 15.1 H %
(11.5-14.5)
Sodium 130 L mmol/L
(135-145)
BUN 51 H mg/dl
(9-20)
Creatinine 1.4 H mg/dL
(0.7-1.3)
Glucose 194 H mg/dl
(70-99)
Alkaline Phosphatase 150 H U/L
(38-126)
Total Protein 5.7 L g/dl
(6.3-8.2)
Albumin 3.3 L g/dl
(3.5-5.0)
11/30/23 19:17
11/30/23 19:17
Vital Signs
Initial and Last Documented VS:
Initial Vital Signs
Temp Pulse Resp BP Pulse Ox
98.1 F 98 18 145/80 98
11/30/23 17:05 11/30/23 17:05 11/30/23 17:05 11/30/23 17:05 11/30/23 17:05
Last Documented Vital Signs
Temp Pulse Resp BP Pulse Ox
98.1 F 71 18 129/74 97
11/30/23 17:05 11/30/23 20:57 11/30/23 17:05 11/30/23 20:57 11/30/23 20:57
<Digna Lou NP - Last Filed: 11/30/23 22:21>
*Radiology
Radiology exam reviewed: radiology read reviewed
*Pulse Oximetry
Patient hypoxic: no
*Critical Care Note
Total Time (30-74mins, 75-104mins- exclusive of procedures): Not Applicable
<Digna Lou NP - Last Filed: 11/30/23 22:21>
Update Note
Update Note:
Patient to ED for middle back pain. Has known compression fractures to middle and lower back. Xrays tonight confirm presence of compression fx and also not possible RUL pneumonia. He does report cough with green secrretions. No fever/chills. CXR
ordered, confirms pneumonia. No hypoxemia. Placed on doxycycline, double dose given in dept. He is discharged home, close follow up with PCP. Given instructions on s/s to return to ED and he is agreeable to plan
ED Attending Note
<Digna Lou EMBOSSING MACHINE OPERATOR HELPER - Last Filed: 11/30/23 22:21>
-
Portions of this chart may have been created with voice recognition software.� Occasional wrong word or��sound alike� substitutions may have occurred due to the inherent limitations of voice recognition software.
<Gretchen Brown DO - Last Filed: 12/01/23 02:00>
ED Attending Note
Patient seen and examined by attending physician: Yes
I performed the substantive portion of visit, reviewed & personally made and approve the management plan that is documented in note by myself or ANAY.: Yes
I performed a history and physical exam of patient and discussed management with resident, I reviewed resident's note and agree with documented findings and plan of care.: Yes
ED Attending Note:
63-year-old gentleman with history of vasculitis, follows with cd technician, chronically maintained on prednisone and more recently, beginning 2 weeks ago was started on prophylactic atovaquone.
He has history of thoracic compression fractures and complains of over 2-week history of harsh cough, occasionally productive of green phlegm accompanied with progressive, moderate upper back pain. He has also noted some lower back pain with left
leg pain that began yesterday. No falls, no fever nor chills.
On exam he is bright and alert, easily communicative. Intermittent nonproductive cough is noted otherwise appears in no acute distress.
Respirations are easy and nonlabored.
No focal neurodeficits.
Chest x-ray shows right upper lobe infiltrate and with history of cough, green phlegm I suspect community-acquired pneumonia. No history of smoking, no recent travel. No hemoptysis.
Thoracic spine x-ray demonstrate compression deformities of 2 thoracic vertebrae; patient reports known history of thoracic compression vertebral fractures. Unclear if these have worsened versus chronic in nature.
Labs are remarkable for moderately elevated white blood cell count of 16.4, moderate but stable anemia and stable chronic kidney disease.
Will treat community-acquired pneumonia with a 10-day course of doxycycline. Will add a short course of Percocet for pain relief.
Recommend he continue atovaquone, but x-ray is not consistent with pneumocystis pneumonia.
Prompt follow-up with PCP and cd technician for recheck.
Return precautions discussed.
Discharge Plan
Departure
Patient Disposition: Home (Routine Discharge)
Date of Disposition: 11/30/23
Time of Disposition: 21:11
Patient with high blood pressure during this ER visit?: No
Condition: Good
Covid-19: Not Applicable
Discharge Problem:
Pneumonia
Instructions: Pneumonia
Prescriptions:
New
doxycycline hyclate 100 mg capsule
100 mg PO BID Qty: 20 0RF
oxycodone-acetaminophen [Percocet] 5-325 mg tablet
1 tab PO Q4HPRN PRN (Reason: pain) Qty: 8 0RF
No Action
amlodipine 5 mg Tablet
5 mg PO DAILY
acetaminophen [Tylenol Extra Strength] 500 mg Tablet
1,000 mg PO BIDPRN PRN (Reason: mild pain)
hydroxychloroquine 200 mg Tablet
300 mg PO DAILY
Hold Instructions: Resume on 10/24/23. await rheumatology to restart if desired
Saline Nasal 0.65 % Aerosol,[place]
2 spray INTRANASAL TID
insulin aspart U-100 [Novolog FlexPen U-100 Insulin] 100 unit/mL (3 mL) Insulin Pen
6 unit SC AC Qty: 15 0RF
insulin glargine [Lantus Solostar U-100 Insulin] 100 unit/mL (3 mL) insulin pen
15 unit SC QPM Qty: 15 0RF
prednisone 20 mg tablet
60 mg PO DAILY 14 Days Qty: 42 0RF
Referrals:
JULIAN SAMANIEGO [Other] - Call in 1-3 days for appt
Activity Restrictions/Additional Instructions:
Return to the emergency department immediately for any changes in/worsening of your symptoms.
Interventions
Interventions:
*Risk Screen - Suicide Last Done: 11/30/23 21:20
*General Assessment Last Done: 11/30/23 21:20
*Neglect/Abuse Screening Last Done: 11/30/23 21:20
ED- Fall Risk Assessment Last Done: 11/30/23 21:20
*ED COVID-19 Vaccine History Last Done: 11/30/23 21:20
*Nursing Disposition Last Done: 11/30/23 21:20
ED-Musculoskeletal Assessment Last Done: 11/30/23 21:20
Discharge Date and Time
Discharge Date/Time: 11/30/23 21:20
Print Language: HEBREW
Musculoskeletal Injury Exam
<Digna Lou NP - Last Filed: 11/30/23 22:21>
Musculoskeletal Injury Exam
Middle Back:
Pain with Movement?: Moderate
Tender to palpation?: Moderate
Soft tissue swelling?: None
External deformity and angulation?: None
Joint effusion?: None
Contusion?: None
Hematoma-local bleeding into tissue?: None
Strain- Sprain- Tear (Connective tissue injury)?: None
Crepitus with movement?: No
Joint instability?: No
Malalignment/deformity?: No
Range of motion: Limited
Distal skin color and temperature: normal-warm & good color
Capillary Refill: normal
Normal distal neurovascular exam?: Yes
== END 2023-11-30 21:20 | disposition home or self-care (01) ==
LOC: EMR 17:01
PROVIDERS: Nurse Practitioner; EMERGENCY PHYSICIAN Emergency Medicine
DX: J18.9 Pneumonia, unspecified organism (principal); R20.2 Paresthesia of skin; R20.0 Anesthesia of skin; M79.605 Pain in left leg; M48.54XA Collapsed vertebra, not elsewhere classified, thoracic region, initial encounter for fracture; I77.6 Arteritis, unspecified; I12.9 Hypertensive chronic kidney disease with stage 1 through stage 4 chronic kidney disease, or unspecified chronic kidney disease; E11.22 Type 2 diabetes mellitus with diabetic chronic kidney disease; N18.9 Chronic kidney disease, unspecified; Z79.4 Long term (current) use of insulin; D64.9 Anemia, unspecified; M19.90 Unspecified osteoarthritis, unspecified site
CPT/HCPCS: 99284; 96374; 96375; 71046; 72072; 72110; 80053; 85027

== ENCOUNTER 2023-12-02 20:00 | Inpatient (IN) | payer OTHER, SELFPAY ==
[2023-12-02] VITALS (10 sets, daily range): BP systolic 106–138; BP diastolic 64–111; BMI 22.3
--- NOTE | 2023-12-02 15:40 | ED.GENMED ---
History of Present Illness
General
Chief Complaint: Flank Pain
Time Seen by Provider: 12/02/23 15:32
Travel History
Have you had any contact with someone who has COVID-19?: No
Do you have any symptoms of coronavirus? Fever > 100 degrees, chills, cough, shortness of breath, sore throat, loss of taste or smell, muscle aches, or headache?: No
History of Present Illness
History of Present Illness:
HPI: Patient came in by ambulance due to severe bilateral flank pain. He was seen here with mid back pain 2 days ago and had x-ray that suggested pneumonia. He did have an associated cough. He has a history of stage III CKD. Records indicate the
patient has a history of compression fractures of the mid and low back. He had new diagnosis of vascular disease/Telma's.
EXAM:
GENERAL: Well appearing in no distress
HEENT: Moist oral mucosa
CARDIOVASCULAR: No murmurs, normal heart rate, regular rhythm, No chest wall tenderness
PULMONARY: No respiratory distress, breath sounds are slightly decreased equally
ABDOMEN: Soft with no peritoneal signs, no tenderness
BACK: There is decreased active range of motion of the thoracolumbar spine, very mild bilateral CVA tenderness
NEUROLOGIC: Excellent strength all extremities, no coordination deficits
PSYCHIATRIC: Appropriate mental status, normal insight and judgement
EXTREMITIES: Nontender, no edema, moves all extremities equally
SKIN: No rash, no lesions
TIME OF INITIAL ENCOUNTER:
3:30 PM
NUMBER AND COMPLEXITY OF PROBLEMS ADDRESSED AT THE ENCOUNTER
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
� Acute Exacerbation and/or Progression of Chronic Illness: This is a subacute problem
� Differential Diagnosis includes: Exacerbation of pain related to renal disease, worsening pneumonia
AMOUNT AND/OR COMPLEXITY OF DATA TO BE REVIEWED AND ANALYZED
� I performed an independent evaluation of and my interpretation is:
EKG:
CT: CT imaging shows ongoing consolidation of the right chest, no clear abnormality noted on abdomen pelvis
X-rays:
Laboratory Studies: White count 18.3 which is higher than prior but patient is on steroids, hemoglobin 10.4, renal function shows a creatinine of 1.5, no clear sign of UTI
Other:
� Review of other/old records: I reviewed T-spine x-ray from 11/30/2023 that showed 2 midthoracic moderate to severe age-indeterminate compression fractures
� Clinical information was obtained by an independent historian: I spoke to family member at bedside
� Prescriptions/Medications Considered but not given:
� Further testing considered but not performed:
RISK OF COMPLICATIONS AND/OR MORBIDITY OR MORTALITY OF PATIENT MANAGEMENT
� Social determinants of health affecting care: Lives at home
� Discussion with other providers: Hospitalist, Dr. Elise at 5:37 PM for admission
� Escalation of care including admission/observation vs risk of discharge considered: After patient was given fentanyl prior to arrival he overall feels somewhat improved however dense consolidation still noted on chest CT. He
was already given antibiotics the other day. He may be failing outpatient antibiotic therapy with pneumonia however he may have a mass�he does smoke a half a pack of cigarettes per day. Pain also may be contributed to by the known compression
fracture and on thoracic spine there is one that appears that could be more acute.
Past History
Past History
ED Past Medical History: HTN, IDDM and Other (anemia, vasculitis)
Social History
Tobacco: Non-smoker
Alcohol: None
Drug: None
Personal:
Living: with family
Phy Exam
Physical Exam
Physical Exam:
See HPI
Course
Orders/Labs/Results
Orders:
Orders
12/02/23 15:44
CT Chest/abd/pel Wo Iv Cont Urgent
Reason For Exam: worsening pain; recent R opacity on CXR
12/02/23 15:49
Basic Metabolic Panel Urgent
Complete Blood Count/With Diff Urgent
12/02/23 17:03
Urinalysis Reflex To Culture Urgent
Date Specimen was Collected: 12/02/23
Time Specimen was Collected: 17:01
Urine Microscopic Reflex Cult Urgent
12/02/23 17:31
Cefepime HCl [Maxipime] 1,000 mg IV NOW STA
12/02/23 18:06
HYDROmorphone [Dilaudid] 1 mg IV NOW STA
12/02/23 18:31
Vancomycin [Vancocin] 1,500 mg 0.9% Sodium Chloride [Nss] 20 ml 0.9% Sodium Chloride 250 ml [Nss] 250 ml IV NOW
Abnormal Lab Results
12/02/23 12/02/23
15:49 17:03
WBC 18.3 H 10^3/uL
(4.8-10.8)
RBC 3.34 L 10^6/uL
(4.70-6.10)
Hgb 10.4 L D g/dL
(13.0-18.0)
Hct 31.0 L %
(39.0-52.0)
MCH 31.1 H pg
(27.0-31.0)
RDW 15.0 H %
(11.5-14.5)
Abs Immat Gran (auto) 0.8 H 10^3/uL
(0-0.05)
Absolute Neuts (auto) 16.7 H 10^3/uL
(1.4-6.5)
Absolute Lymphs (auto) 0.3 L 10^3/uL
(1.2-3.4)
Immature Gran % 4.2 H %
(0-0.5)
Neutrophils % 91.1 H %
(42.2-75.2)
Lymphocytes % 1.9 L %
(20.5-51.1)
Sodium 134 L mmol/L
(135-145)
BUN 46 H mg/dl
(9-20)
Creatinine 1.5 H mg/dL
(0.7-1.3)
Glucose 156 H mg/dl
(70-99)
Ur Occult Blood Reflex Trace A
(Negative)
Urine RBC 3-6 A /HPF
(0-2)
Urine Bacteria (Reflex) Few A
(Negative)
Urine Albumin (Reflex) 1+ A
(Neg - Trace)
12/02/23 15:49
12/02/23 15:49
Vital Signs
Initial and Last Documented VS:
Initial Vital Signs
Temp Pulse Resp BP Pulse Ox
98.0 F 72 16 122/111 97
12/02/23 15:31 12/02/23 15:31 12/02/23 15:31 12/02/23 15:31 12/02/23 15:31
Last Documented Vital Signs
Temp Pulse Resp BP Pulse Ox
98.0 F 72 16 131/70 98
12/02/23 15:31 12/02/23 15:31 12/02/23 15:31 12/02/23 18:00 12/02/23 18:15
*Critical Care Note
Total Time (30-74mins, 75-104mins- exclusive of procedures): Not Applicable
ED Attending Note
-
Portions of this chart may have been created with voice recognition software.� Occasional wrong word or��sound alike� substitutions may have occurred due to the inherent limitations of voice recognition software.
Discharge Plan
Departure
Patient Disposition: Admit
Date of Disposition: 12/02/23
Time of Disposition: 17:37
Presentation/result/management discussed w/ accepting MD/DO: Hospitalist
Discharge Problem:
Consolidation lung
Prescriptions:
No Action
amlodipine 5 mg Tablet
5 mg PO DAILY
acetaminophen [Tylenol Extra Strength] 500 mg Tablet
1,000 mg PO BIDPRN PRN (Reason: mild pain)
prednisone 20 mg tablet
60 mg PO DAILY 14 Days Qty: 42 0RF
doxycycline hyclate 100 mg capsule
100 mg PO BID Qty: 20 0RF
atovaquone 750 mg/5 mL Suspension
750 mg PO BID
Tavneos 10 mg Capsule
30 mg PO BID
oxycodone-acetaminophen [Percocet] 5-325 mg tablet
1 tab PO Q4HPRN PRN (Reason: severe pain)
insulin aspart U-100 [Novolog FlexPen U-100 Insulin] 100 unit/mL (3 mL) insulin pen
4 - 6 unit SC AC
Referrals:
UNKNOWN - PT DOES,NOT KNOW [Family Provider] -
Interventions
Interventions:
*Risk Screen - Suicide Last Done: 12/02/23 15:41
*General Assessment Last Done: 12/02/23 15:41
*Neglect/Abuse Screening Last Done: 12/02/23 15:41
ED- Fall Risk Assessment Last Done: 12/02/23 15:41
*ED COVID-19 Vaccine History Last Done: 12/02/23 15:41
TO-Fkvomp-Wykbdtcxzb Assessment Last Done: 12/02/23 15:41
ED-Male Genitourinary Assessment Last Done: 12/02/23 15:41
Discharge Date and Time
Print Language: IRANIAN
[2023-12-02 15:59] LABS: % Basophils 0.3 % (0-2); % Eosinophils 0.1 % (0-6); % Immature Granulocytes 4.2 % (0-0.5); % Lymphocytes 1.9 % (20.5-51.1); % Monocytes 2.4 % (1.7-9.3); % Neutrophils 91.1 % (42.2-75.2); Absolute Basophils 0.1 10^3/uL (0-0.2); Absolute Immature Granulocytes 0.8 10^3/uL (0-0.05); Absolute Lymphocytes 0.3 10^3/uL (1.2-3.4); Absolute Monocytes 0.4 10^3/uL (0.1-0.6); Absolute Neutrophils 16.7 10^3/uL (1.4-6.5); Hemoglobin 10.4 g/dL (13.0-18.0); Mean Corp Hgb Conc. 33.5 g/dL (33.0-37.0); Mean Corpuscular Hgb 31.1 pg (27.0-31.0); Mean Corpuscular Volume 92.8 fL (80.0-94.0); Mean Platelet Volume 10.1 fL (7.4-10.4); Nucleated Red Blood Cells % 0 % (-); Platelet Count 246 10^3/uL (130-400); Red Blood Cell Count 3.34 10^6/uL (4.70-6.10); White Blood Cell Count 18.3 10^3/uL (4.8-10.8)
[2023-12-02 16:17] LABS: Blood Urea Nitrogen 46 mg/dl (9-20); Calcium 9.9 mg/dl (8.4-10.2); Carbon Dioxide 25 mmol/L (22-30); Chloride 98 mmol/L (98-107); Estimated Creatinine Clearance 48 ml/min; Glucose 156 mg/dl (70-99); Potassium 4.4 mmol/L (3.5-5.1); Sodium 134 mmol/L (135-145); eGFR 52.31
[2023-12-02 17:09] LABS: Urine Albumin 1+ (Neg - Trace); Urine Bilirubin Negative (Negative); Urine Character Clear (Clear); Urine Color Yellow; Urine Glucose Negative (Negative); Urine Ketone Negative (Negative); Urine Leukocyte Negative (Negative); Urine Nitrite Negative (Negative); Urine Occult Blood Trace (Negative); Urine Specific Gravity 1.005 (<1.030); Urine Urobilinogen Negative (Neg - 1+)
[2023-12-02 17:20] LABS: Urine Bacteria Few (Negative); Urine White Cell 0-2 /HPF (0-5)
[2023-12-02] MEDS: MAXIPIME 1000 MG IV ×2 (18:10→23:08)
[2023-12-02] MEDS: DILAUDID 1 MG IV (18:12)
--- NOTE | 2023-12-02 18:27 | HPS.HSE ---
Family Physician
-
Family Physician: NOT KNOW UNKNOWN - PT DOES
Chief Complaint
-
Back pain
History of Present Illness
63 man came in by ambulance due to severe bilateral flank pain (>10/10). He was seen here with mid back pain 2 days ago and had x-ray that suggested pneumonia. He did have an associated cough, and continues to have a cough. He has a history of
stage III CKD. He has a history of compression fractures of the mid and low back. 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
polyangiitis. He is now comfortable after having received fentanyl and dilaudid. CT in ED showed:
1. Right upper lobe dense consolidative opacity measuring 6.0 cm for which differential considerations would include an infectious process/pneumonia versus lung cancer.
Clinical correlation is recommended and a follow-up PET/CT or soft tissue sampling can be performed for further evaluation.
2. Faint pneumonitis in the left upper lobe.
3. Moderate to large colonic stool burden, which can be seen with constipation.
4. No CT evidence for metastatic disease in the chest, abdomen, or pelvis within the limitations of the lack of intravenous contrast.
5. Severe compression fracture of T8, which appears to be acute or subacute.
6. Moderate compression fracture of T9 and mild compression fracture of L5 are age-indeterminate.
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 He has had colonoscopies.
Medical History
Past Medical History
Past Medical History: Reports Other
Additional Past Medical History:
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
polyangiitis.
Smoking
Compression Fx. of spine
CKD, baseline creatinine 1.5
finger amputation
Diabetes, on insulin
Essential HTN
Past Surgical History: Reports Other
Additional Past Surgical History:
See above
Social History
Tobacco: Smoker
Alcohol: Occasional
Drug: None
Personal:
Living: With Family
Employment: Employed
Family History
Family History: Not pertinent
Allergies / Home Medications
Allergies reflects when Allergies were last updated in [facility].
Home Medications with original date entered in [facility]
Allergy/Medication List:
Allergies
Allergy/AdvReac Type Severity Reaction Status Date / Time
Penicillins Allergy Unknown Verified 10/04/23 09:36
Home Medications
acetaminophen 500 mg tablet (Tylenol Extra Strength) 1,000 mg PO BIDPRN PRN mild pain 10/04/23
amlodipine 5 mg tablet 5 mg PO DAILY Blood Pressure 10/04/23
prednisone 20 mg tablet 60 mg (3 x 20 mg) PO DAILY 14 days #42 tabs 10/06/23
doxycycline hyclate 100 mg capsule 100 mg PO BID #20 caps 11/30/23
atovaquone 750 mg/5 mL oral suspension 750 mg PO BID 12/02/23
avacopan 10 mg capsule (Tavneos) 30 mg PO BID 12/02/23
insulin aspart U-100 100 unit/mL (3 mL) subcutaneous pen (Novolog FlexPen U-100 Insulin aspart) 4 - 6 unit SC AC 12/02/23
oxycodone-acetaminophen 5 mg-325 mg tablet (Percocet) 1 tab PO Q4HPRN PRN severe pain 12/02/23
Review of Systems
-
History Source: Patient
A 12 point ROS was completed and negative except as noted: Yes
Physical Exam
Vital Signs
Vital Signs
Temp Pulse Resp BP Pulse Ox
98.0 F 72 16 131/70 98
12/02/23 15:31 12/02/23 15:31 12/02/23 15:31 12/02/23 18:00 12/02/23 18:15
Physical Exam
General: Well Developed, Well Nourished, No Apparent Distress, Comfortable and Conversant
HEENT: NormoCephalic, Moist mucous membranes, [place] Conjunctivae, No Ptosis, Nose Appears Normal and Ears Appear Normal
Respiratory: Crackles
Cardiac: S1/S2 and Regular Rhythm
GI: Soft, Non Tender and Non Distended
Musculoskeletal: No Clubbing, No Cyanosis and No Edema
Skin: Warm and Dry; No Rash or Jaundice
Neuro: Awake, Alert, Oriented, AO x 3 and No Motor Deficits
Psych: Calm
Laboratory Results
-
12/02/23 15:49
12/02/23 15:49
Data Reviewed
-
Lab Data: Labs Reviewed by me
Impression/Plan
-
IMPRESSION:
63 man with vasculitis/granulomatous disease, severe back pain and a CT that shows compression Fx and complex lung findings. CT:
1. Right upper lobe dense consolidative opacity measuring 6.0 cm for which differential considerations would include an infectious process/pneumonia versus lung cancer.
Clinical correlation is recommended and a follow-up PET/CT or soft tissue sampling can be performed for further evaluation.
2. Faint pneumonitis in the left upper lobe.
3. Moderate to large colonic stool burden, which can be seen with constipation.
4. No CT evidence for metastatic disease in the chest, abdomen, or pelvis within the limitations of the lack of intravenous contrast.
5. Severe compression fracture of T8, which appears to be acute or subacute.
6. Moderate compression fracture of T9 and mild compression fracture of L5 are age-indeterminate.
PLAN:
1. Lung mass, h/o smoking and woodworking
Pulmonary consult
Continue abx for pna for now
2. Compression Fx. unclear causes. Has been on steroids for 5 months.
Had scheduled visit with [facility] consult
Pain control
3. Vasculitis, chronic issue
Continue steroids
4. CKD, baseline BUN/Creat ~40s/1.5, he appears to be at baseline
Oral fluids
Check daily
5. UA shows Occult blood, RBCs, and a few jackson.
Antibiotics for PNA should cover for now
Follow culture results
6. WBC of 18.3, up from 16.4. Could be steroids, but also worsening infection.
BP and pulse OK, no signs of sepsis
Follow daily
Full code
VCD for DVTp
[2023-12-02] MEDS: VANCOCIN 300 MG IV (19:01)
[2023-12-02] MEDS: VANCOCIN 300 ML IV (19:01)
[2023-12-02] MEDS: MEPRON SUSPENSION 750 MG PO (21:49)
[2023-12-02] MEDS: VIBRAMYCIN 100 MG PO (21:49)
[2023-12-02] MEDS: PERCOCET 5/325 1 TABLET PO (21:49)
--- NOTE | 2023-12-02 21:50 | PTCARENOTE ---
Received pt from floor. Pt transferred self onto bed from stretcher. AAOx3, 03/12 pain mostly in left flank, but radiates across back. VSS. Oriented pt to floor, call ferreira within reach.
[2023-12-02] MEDS: STERILE WATER FOR INJECTION 10 ML IV (23:07)
[2023-12-03] MEDS: PERCOCET 5/325 1 TABLET PO ×2 (02:27→06:45)
[2023-12-03 06:00] VITALS: BMI 21.9
[2023-12-03 07:30] VITALS: BP 123/65
[2023-12-03 07:30] LABS: Glucose - Point of Care 137 mg/dl (70-99)
[2023-12-03] MEDS: DELTASONE 60 MG PO (08:04)
[2023-12-03] MEDS: MEPRON SUSPENSION 750 MG PO ×2 (08:04→19:47)
[2023-12-03] MEDS: NORVASC 5 MG PO (08:07)
[2023-12-03] MEDS: MAXIPIME 1000 MG IV ×3 (08:07→23:02)
[2023-12-03] MEDS: VIBRAMYCIN 100 MG PO ×2 (08:07→19:47)
[2023-12-03] MEDS: STERILE WATER FOR INJECTION 10 ML IV ×3 (08:07→23:02)
[2023-12-03] MEDS: NOVOLOG FLEXPEN-HIGH RESISTANCE 1 UNITS SC (08:13)
[2023-12-03] MEDS: DILAUDID 0.25 MG IV ×2 (08:58→12:15)
--- NOTE | 2023-12-03 09:09 | CON.PUL ---
Consultation
Consultation Request
Date/Time Consultation Requested: 12/03/2023- AM
Date/Time Consultation Performed: 12/03/2023- AM
Requesting Provider: Hospitalist
Performing Provider: Dr. Belcher
Reason for Consultation: Lung mass
Medical History
-
Chief Complaint: Shortness of breath
History of Present Illness:
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
12/03/23. His major complaint was flank pain. He did have some shortness of breath, some chest congestion, difficulties mobilizing secretions but no chest pain anteriorly, pleurisy, mopped assist, abdominal pain, nausea vomiting diarrhea or other
constitutional symptoms.
Past Medical History
Past Medical History: None (Newly diagnosis vasculitis-Telma's. Cigarette smoker. Chronic kidney disease baseline serum creatinine 1.5. Finger amputation. Diabetes. Hypertension.)
Social History
Tobacco: Smoker (15-[id number] smoker-still a half a pack daily)
Alcohol: Occasional
Drug: None
Personal:
Living: With Family
Occupational Exposures: Denies tuberculosis exposure
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
Family History
Family History: Reviewed & Not Pertinent
Allergies / Home Medications
Allergies
Allergy/AdvReac Type Severity Reaction Status Date / Time
Penicillins Allergy Unknown Verified 10/04/23 09:36
Home Medications
�Medication �Instructions �Recorded �Confirmed �Last Taken �Type
acetaminophen 500 mg tablet 1,000 mg PO BIDPRN PRN mild pain 10/04/23 12/02/23 10/03/23 History
(Tylenol Extra Strength)
amlodipine 5 mg tablet 5 mg PO DAILY Blood Pressure 10/04/23 12/02/23 12/02/23 History
prednisone 20 mg tablet 60 mg (3 x 20 mg) PO DAILY 14 days 10/06/23 12/02/23 12/02/23 Rx
#42 tabs
doxycycline hyclate 100 mg capsule 100 mg PO BID #20 caps 11/30/23 12/02/23 12/01/23 Rx
atovaquone 750 mg/5 mL oral 750 mg PO BID 12/02/23 12/02/23 Unknown History
suspension
avacopan 10 mg capsule (Tavneos) 30 mg PO BID 12/02/23 12/02/23 Unknown History
insulin aspart U-100 100 unit/mL 4 - 6 unit SC AC 12/02/23 12/02/23 12/02/23 History
(3 mL) subcutaneous pen (Novolog
FlexPen U-100 Insulin aspart)
oxycodone-acetaminophen 5 mg-325 1 tab PO Q4HPRN PRN severe pain 12/02/23 12/02/23 12/02/23 History
mg tablet (Percocet)
Review of Systems
-
Unable to Obtain full review of systems at this time due to: Other (Per HPI)
Vitals / Labs / Diagnostic Testing
Vital Signs
Temp Pulse Resp BP Pulse Ox
98.7 F 63 16 123/65 98
12/03/23 07:30 12/03/23 07:30 12/03/23 07:30 12/03/23 07:30 12/03/23 07:30
Lab Data
12/02/23 15:49
12/02/23 15:49
Diagnostic Testing:
Physical Exam
-
Exam:
Well-nourished and well-developed in no apparent distress
HEENT-atraumatic, normocephalic
Neck-supple, no JVD, no bruit
Heart-regular rate and rhythm-no murmurs, rubs or gallops
Chest with diminished breath sounds, rare crackle and no wheezes
Abdomen-soft, nontender, nondistended, no hepatosplenomegaly
Extremities-no cyanosis, clubbing, edema and good peripheral pulses
Integument-intact, no rashes, lesions or ecchymosis
Neurology-alert and oriented, nonfocal motor and sensory exam
Assessment
-
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
12/03/23.
Lung mass/consolidation
Compression fracture-has been on steroids for 5 months
Recently diagnosed vasculitis
Leukocytosis
Anemia-hemoglobin 10.4-normocytic
Hyperglycemia
Conditions present prior to admission:
Newly diagnosis vasculitis-Telma's.
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
Cigarette smoker.
Chronic kidney disease baseline serum creatinine 1.5.
Finger amputation.
Diabetes.
Hypertension.
Plan
Recent history of vasculitis, chronic high-dose steroids, compression fractures and CT chest with dense consolidation reviewed
Dense consolidation may be infectious, however, with heavy smoking history malignancy is a possibility as well as less likely pulmonary renal syndrome related
Supplemental oxygen
Incentive spirometry
Mucolytic's
Nebulizers if needed
Sputum culture
Empiric antibiotics
Check urine Legionella and streptococcal antigens
Cover atypicals as well
PJP prophylaxis ongoing
Will need to follow closely radiographically
If infiltrate does not improve with antibiotics then bronchoscopy/biopsy will likely be indicated in addition to PET scan, etc.
Monitor blood sugar
Insulin supplementation as needed
Follow hemoglobin
Transfuse if needed
Smoking cessation counseling ongoing
DVT prophylaxis recommended
Outpatient pulmonary [id number] PFTs, radiographic follow-up and consideration towards biopsy
Diagnostic data:
Chest x-ray 11/30/2023-right upper lobe consolidation suspicious for pneumonia
CT chest abdomen and pelvis 12/02/23-6 cm right upper lobe dense consolidation, small and nodular consolidations inferior right upper lobe, faint pneumonitis left upper lobe, no lymphadenopathy, constipation suspected, no CT evidence for metastatic
disease chest abdomen or pelvis, severe compression fracture T8 which appears acute or subacute
Renal biopsy 10/05/2023-left renal parenchymal biopsy performed by interventional radiology
Renal biopsy 10/05/2023-consistent with vasculitis-sent to [facility] renal pathology for processing-focal crescentic glomerulonephritis PR3-ANCA associated, tubular atrophy and interstitial fibrosis
Data Reviewed
-
EKG: Report reviewed by me
Radiology: Image personally visualized and interpreted and Report reviewed by me
CT Scan: Image personally visualized and interpreted and Report reviewed by me
Ultrasound: Report reviewed by me
Medical Tests (Nuc Med, Echo etc): Report reviewed by me
Labs: Discussed with Physician
Old Records: Reviewed
Total Time Spent with Patient (in minutes): 50
[2023-12-03 10:15] VITALS: BP 127/69; PULSE 68; O2SAT 99
[2023-12-03 12:12] LABS: Glucose - Point of Care 522 mg/dl (70-99)
[2023-12-03 12:56] LABS: Glucose 360 mg/dl (70-99)
[2023-12-03] MEDS: NOVOLOG FLEXPEN-LOW RESISTANCE 5 UNITS SC (13:08)
[2023-12-03] MEDS: NOVOLOG FLEXPEN 4 UNITS SC ×2 (13:08→18:00)
[2023-12-03] MEDS: LIDOCAINE 4% PATCH 1 PATCH TOPICAL (14:19)
[2023-12-03] MEDS: DILAUDID 0.5 MG IV ×3 (15:18→23:00)
--- NOTE | 2023-12-03 15:20 | W.PN.HOSP.TC ---
Today's Communication/Plan
-
see plan
Assessment / Plan
Assessment / Plan
IMPRESSION:
63 man with vasculitis/granulomatous disease, severe back pain and a CT that shows compression Fx and complex lung findings. CT:
1. Right upper lobe dense consolidative opacity measuring 6.0 cm for which differential considerations would include an infectious process/pneumonia versus lung cancer.
Clinical correlation is recommended and a follow-up PET/CT or soft tissue sampling can be performed for further evaluation.
2. Faint pneumonitis in the left upper lobe.
3. Moderate to large colonic stool burden, which can be seen with constipation.
4. No CT evidence for metastatic disease in the chest, abdomen, or pelvis within the limitations of the lack of intravenous contrast.
5. Severe compression fracture of T8, which appears to be acute or subacute.
6. Moderate compression fracture of T9 and mild compression fracture of L5 are age-indeterminate.
PLAN:
1. Lung mass, h/o smoking and woodworking
Pulmonary consult
Continue abx for pna
strep/legionella antigens pending
culture data pending
May require bronchoscopy pending clinical course. Repeat cxr in a few days to assess improvement.
2. Compression Fx. unclear causes. Has been on steroids for 5 months.
Had scheduled visit with [facility] consult
Pain control
3. Vasculitis, chronic issue
Continue steroids
4. CKD, baseline BUN/Creat ~40s/1.5, he appears to be at baseline
Oral fluids
Check daily
5. UA shows Occult blood, RBCs, and a few jackson.
Antibiotics for PNA should cover for now
Follow culture results
6. WBC of 18.3, up from 16.4. Could be steroids, but also worsening infection.
BP and pulse OK, no signs of sepsis
Follow daily
pt updated
Anticipated Discharge: > 48 hours
Subjective/Interval History
-
Date of Service: December 03, 2023
pt has ongoing pain from the fractures
coughing with green mucous
afebrile
no chills
Objective Data
-
Labs:
Laboratory Results
12/03/23
12:22
Glucose 360 H
Vital Signs:
Vital Signs
Temp Pulse Resp BP Pulse Ox
98.7 F 63 16 123/65 98
12/03/23 07:30 12/03/23 07:30 12/03/23 07:30 12/03/23 07:30 12/03/23 08:00
Review of Systems
-
History Source: Patient
All other systems: Reviewed and negative
Musculoskeletal: Reports Other (compression frx related pain)
Physical Exam
-
General: Well Developed and No Apparent Distress
HEENT: Normocephalic, Atraumatic and Moist Mucous Membranes
Respiratory: Clear to Auscultation
Cardiac: Regular Rhythm and S1/S2; Negative Murmur, Rub or Gallop
GI: Soft, Nontender, Nondistended and Normal Bowel Sounds; Negative Organomegaly
Rectal: Deferred by Provider
Musculoskeletal: No Clubbing, No Cyanosis and No Edema
Skin: Negative Rash
Neuro: Nonfocal/Grossly Intact
Data Reviewed
-
Diagnostic Radiology: Report Reviewed by me
Labs: Labs Reviewed by me and Discussed with Family
[2023-12-03 15:21] LABS: Glucose - Point of Care 240 mg/dl (70-99)
[2023-12-03 15:55] VITALS: BP 133/68
--- NOTE | 2023-12-03 16:07 | CM ---
Alert awake oriented patient who lives with his Collette who lives in a 2 story home with 3 step to enter and 12 steps to bed and bathroom. He is independent in driving and in all activities of daily living.He was offered Vn he declined need.No
adaptive devices.
No VN hx / No SNF history
[facility]
PCP DR Rocco Pascual
PLAN Home Declined VN
[2023-12-03] MEDS: TYLENOL 1000 MG PO ×2 (16:26→23:00)
[2023-12-03 17:43] LABS: Glucose - Point of Care 174 mg/dl (70-99)
[2023-12-03] MEDS: NOVOLOG FLEXPEN-LOW RESISTANCE 1 UNITS SC (18:00)
--- NOTE | 2023-12-03 20:36 | CON.ORTHO ---
Consultation
-
Date/Time Consultation Requested: 745 PM 12/02/2023
Date/Time Consultation Performed: 545 PM 12/03/2023
Requesting Provider: Artemio
Performing Provider: Kareen
Reason for Consultation: Thoracic/Lumbar compression fractures
Consultation - Orthopedics
History
HPI: 63-year-old male history of vasculitis on steroids as well as history of known thoracic compression fractures presented to the [facility] emergency department with predominantly left-sided flank pain. He was subsequently admitted to the
hospitalist service for pain control and further workup of pulmonary consolidation. Orthopedics was consulted for evaluation treatment recommendations regarding thoracic and lumbar compression fractures. Today patient does report some midline
thoracolumbar back pain but is more so complaining of left-sided paralumbar parathoracic pain. He does report some pain that radiates around the left side to anterior chest wall. He does describe this as a burning sensation. He does report that
he has been told in the past that he has a known thoracic compression fracture but thinks that he only had 1 fracture. He never received significant treatment for this. He does admit to a smoking history. Cannot recall any recent trauma or falls.
He actually has an outpatient appointment scheduled for 10 days with nonoperative spine provider for follow-up and treatment recommendations regarding compression fractures and back pain.
Allergies / Home Medications
Past medical history: Telma's granulomatosis, diabetes, chronic kidney disease, hypertension
Past surgical history: Finger amputation
Family history: Not pertinent
Social history: Cigarette smoker, lives with family, [place]
Allergy/AdvReac Type Severity Reaction Status Date / Time
Penicillins Allergy Unknown Verified 10/04/23 09:36
�Medication �Instructions �Recorded
acetaminophen 500 mg tablet 1,000 mg PO BIDPRN PRN mild pain 10/04/23
(Tylenol Extra Strength)
amlodipine 5 mg tablet 5 mg PO DAILY Blood Pressure 10/04/23
prednisone 20 mg tablet 60 mg (3 x 20 mg) PO DAILY 14 days 10/06/23
#42 tabs
doxycycline hyclate 100 mg capsule 100 mg PO BID #20 caps 11/30/23
atovaquone 750 mg/5 mL oral 750 mg PO BID 12/02/23
suspension
avacopan 10 mg capsule (Tavneos) 30 mg PO BID 12/02/23
insulin aspart U-100 100 unit/mL 4 - 6 unit SC AC 12/02/23
(3 mL) subcutaneous pen (Novolog
FlexPen U-100 Insulin aspart)
oxycodone-acetaminophen 5 mg-325 1 tab PO Q4HPRN PRN severe pain 12/02/23
mg tablet (Percocet)
Vital Signs / Lab Results
Temp Pulse Resp BP Pulse Ox
98.7 F 92 20 133/68 94
12/03/23 15:55 12/03/23 15:55 12/03/23 15:55 12/03/23 15:55 12/03/23 15:55
12/02/23 15:49
12/03/23 12:22
10 point review systems reviewed and negative unless otherwise stated
General: Pleasant, no acute distress, seated at edge of bed
Musculoskeletal examination
No cervical midline tenderness palpation
No upper thoracic midline tenderness palpation
There is some mild to moderate tenderness palpation thoracolumbar junction
No tenderness palpation over the lower lumbar spine midline
There is some mild paralumbar parathoracic soft tissue tenderness palpation
5 out of 5 strength equal bilateral upper extremities C5-T1
Negative Chelita's
No clonus
Hyporeflexia patella tendon reflexes
There is some mild weakness with resisted hip flexion and ankle dorsiflexion otherwise equal bilateral lower extremity strength L2-S1
Diagnostic studies
CT scan chest abdomen pelvis as well as thoracic and lumbar radiographs reviewed. Radiology report indicates severe compression fracture T8, moderate compression fracture T9, mild compression fracture L5 with multilevel degenerative disc disease
Assessment / Plan
63-year-old male smoker history of Telma's granulomatosis on prednisone with history of thoracic compression fracture and age-indeterminate compression fractures noted on recent CT scan. Patient does have some mild to moderate tenderness location
thoracolumbar junction midline spine that may be consistent with more acute compression fracture. Patient does not recall any recent trauma. There is really no way to determine the acuity without obtaining an MRI. I not sure this would really
change treatment options at this point however patient is planning on being hospitalized for further workup of pulmonary mass, could consider obtaining MRI of thoracic and lumbar spine to evaluate the acuity of compression fractures. Patient may
also have a component of referred nerve root impingement pain to the anterior chest wall from thoracic spine. This may aid his workup on an outpatient basis. I would not recommend any acute intervention. I did briefly discuss a TLSO style brace
with him however I am not sure he would really tolerate this well and he was not in favor proceeding with this. Would recommend mobilization with physical therapy. Again no acute orthopedic intervention planned. Please reach out any questions or
concerns
[2023-12-03 21:13] LABS: Glucose - Point of Care 206 mg/dl (70-99)
[2023-12-03] MEDS: PEPCID 20 MG PO (23:23)
[2023-12-03 23:45] VITALS: BP 131/73
[2023-12-04 06:00] VITALS: BMI 22.0
[2023-12-04 06:10] LABS: % Basophils 0.2 % (0-2); % Eosinophils 0.4 % (0-6); % Immature Granulocytes 7.2 % (0-0.5); % Lymphocytes 6.6 % (20.5-51.1); % Monocytes 4.5 % (1.7-9.3); % Neutrophils 81.1 % (42.2-75.2); Absolute Immature Granulocytes 0.8 10^3/uL (0-0.05); Absolute Lymphocytes 0.7 10^3/uL (1.2-3.4); Absolute Monocytes 0.5 10^3/uL (0.1-0.6); Absolute Neutrophils 8.8 10^3/uL (1.4-6.5); Hemoglobin 8.4 g/dL (13.0-18.0); Mean Corp Hgb Conc. 33.6 g/dL (33.0-37.0); Mean Corpuscular Hgb 30.8 pg (27.0-31.0); Mean Corpuscular Volume 91.6 fL (80.0-94.0); Mean Platelet Volume 10.3 fL (7.4-10.4); Nucleated Red Blood Cells % 0 % (-); Platelet Count 214 10^3/uL (130-400); Red Blood Cell Count 2.73 10^6/uL (4.70-6.10); Red Cell Dist. Width 14.7 % (11.5-14.5); White Blood Cell Count 10.9 10^3/uL (4.8-10.8)
[2023-12-04 06:39] LABS: ALT (SGPT) 19 U/L (0-50); AST (SGOT) 18 U/L (17-59); Alkaline Phosphatase 144 U/L (38-126); Blood Urea Nitrogen 56 mg/dl (9-20); Calcium 9.1 mg/dl (8.4-10.2); Carbon Dioxide 24 mmol/L (22-30); Chloride 102 mmol/L (98-107); Estimated Creatinine Clearance 44 ml/min; Glucose 138 mg/dl (70-99); Potassium 4.8 mmol/L (3.5-5.1); Sodium 132 mmol/L (135-145); Total Bilirubin 0.3 mg/dl (0.2-1.3); Total Protein 5.4 g/dl (6.3-8.2); eGFR 48.41
[2023-12-04] MEDS: DILAUDID 0.5 MG IV ×5 (07:24→22:42)
[2023-12-04 08:05] VITALS: BP 141/77
[2023-12-04] MEDS: PERCOCET 5/325 2 TABLET PO ×3 (09:10→19:40)
--- NOTE | 2023-12-04 09:24 | W.PN.PUL.V3 ---
Today's Communication / Plan
-
Analgesia per primary service
Continue antibiotics
Eventual radiographic follow-up
Consideration towards consolidation sampling via bronchoscopy if infiltrate does not improve with antibiotics
Assessment
-
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
12/03/23.
Lung mass/consolidation
Compression fracture-has been on steroids for 5 months
Recently diagnosed vasculitis
Leukocytosis
Anemia-hemoglobin 10.4-normocytic
Hyperglycemia
Conditions present prior to admission:
Newly diagnosis vasculitis-Telma's.
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
Cigarette smoker.
Chronic kidney disease baseline serum creatinine 1.5.
Finger amputation.
Diabetes.
Hypertension.
Plan
Recent history of vasculitis, chronic high-dose steroids, compression fractures and CT chest with dense consolidation reviewed
Dense consolidation may be infectious, however, with heavy smoking history malignancy is a possibility as well as less likely pulmonary renal syndrome related
Supplemental oxygen-assess discharge supplemental oxygen needs
Incentive spirometry encouraged
Mucolytic's
Nebulizers if needed
Sputum culture-poor specimen and cultures not completed
Empiric antibiotics-recommend extended finite course
Urine Legionella and streptococcal antigen negative
Cover atypicals as well
PJP prophylaxis ongoing
Will need to follow closely radiographically
If infiltrate does not improve with antibiotics then bronchoscopy/biopsy will likely be indicated in addition to PET scan, etc.-reviewed with patient as well as primary team
Monitor blood sugar
Insulin supplementation as needed
Follow hemoglobin
Transfuse if needed
Smoking cessation counseling ongoing
DVT prophylaxis recommended
Outpatient pulmonary [id number] PFTs, radiographic follow-up and consideration towards biopsy
Diagnostic data:
Chest x-ray 11/30/2023-right upper lobe consolidation suspicious for pneumonia
CT chest abdomen and pelvis 12/02/23-6 cm right upper lobe dense consolidation, small and nodular consolidations inferior right upper lobe, faint pneumonitis left upper lobe, no lymphadenopathy, constipation suspected, no CT evidence for metastatic
disease chest abdomen or pelvis, severe compression fracture T8 which appears acute or subacute
Renal biopsy 10/05/2023-left renal parenchymal biopsy performed by interventional radiology
Renal biopsy 10/05/2023-consistent with vasculitis-sent to [facility] renal pathology for processing-focal crescentic glomerulonephritis PR3-ANCA associated, tubular atrophy and interstitial fibrosis
Subjective Data
-
Date of Service:
Date of Service: December 04, 2023
Chief Complaint: Pulmonary Follow Up and Dyspnea Follow Up
Subjective:
Major complaint continues to be sided back pain from compression fractures, sputum production and cough have improved, no chest pain or abdominal pain
Review of Systems
General: Other
Objective Data
Data Reviewed
Vital Signs / I&O:
Vital Signs
Temp Pulse Resp BP Pulse Ox
98.4 F 71 18 141/77 100
12/04/23 08:05 12/04/23 08:05 12/04/23 08:05 12/04/23 08:05 12/04/23 08:05
Intake and Output
12/03/23 12/04/23 12/05/23
06:59 06:59 06:59
Intake Total 1230 / 1230
Output Total 900 / 900
Balance 330 / 330
SaO2: 100
Physical Exam
General: Respiratory Distress (n) and Comfortable
HEENT: Normocephalic, Anicteric and Moist Mucous Membranes
Cardiovascular: Regular Rhythm
Respiratory: Wheeze (n), Crackles (n), Rhonchi (n), Non-Labored Respirations, Accessory Resp Muscle Use (n) and Stridor (n)
GI: Soft, Non Distended and Non Tender
Neurology: Awake, Alert and No Motor Deficits
Skin: Warm, Good Color, Cyanosis (n), Jaundice (n) and Rash (n)
Labs/Micro/Reports
Lab Data
12/04/23 05:02
12/04/23 05:02
Microbiology
12/03/23 11:40 Urine Legionella Urinary Antigen - Final
Negative for Legionella pneumophila Serogroup 1 antigen.
A negative result does not rule out the possiblity of
Legionella infection due to other serogroups or species of
Legionella. Clinical correlation is recommended.
12/03/23 11:40 Urine Streptococcus pneumoniae Antigen (M - Final
Negative for Streptococcus pneumoniae antigen.
A negative result does not exclude infection with
Streptococcus pneumoniae. Clinical correlation is
recommended.
12/03/23 06:50 Sputum Respiratory Culture - Final
12/03/23 06:50 Sputum Gram Stain - Final
[2023-12-04 09:28] VITALS: BP 162/81; PULSE 91
[2023-12-04 09:30] LABS: Glucose - Point of Care 112 mg/dl (70-99)
[2023-12-04 09:32] VITALS: BP 162/81; PULSE 91
[2023-12-04] MEDS: LIDOCAINE 4% PATCH 1 PATCH TOPICAL (09:42)
[2023-12-04] MEDS: VIBRAMYCIN 100 MG PO ×2 (09:42→19:40)
[2023-12-04] MEDS: DELTASONE 60 MG PO (09:43)
[2023-12-04] MEDS: MAXIPIME 1000 MG IV ×3 (09:45→23:27)
[2023-12-04] MEDS: MEPRON SUSPENSION 750 MG PO ×2 (09:45→19:40)
[2023-12-04] MEDS: NORVASC 5 MG PO (09:45)
[2023-12-04] MEDS: STERILE WATER FOR INJECTION 10 ML IV ×3 (09:46→23:27)
[2023-12-04] MEDS: NOVOLOG FLEXPEN 4 UNITS SC ×3 (09:47→17:19)
[2023-12-04] MEDS: NOVOLOG FLEXPEN-LOW RESISTANCE SC (09:48)
[2023-12-04] MEDS: TYLENOL PO ×3 (11:05→21:02)
--- NOTE | 2023-12-04 11:07 | W.PN.HOSP.TC ---
Today's Communication/Plan
-
cont abx.
Assessment / Plan
Assessment / Plan
IMPRESSION:
63 man with vasculitis/granulomatous disease, severe back pain and a CT that shows compression Fx and complex lung findings. CT:
1. Right upper lobe dense consolidative opacity measuring 6.0 cm for which differential considerations would include an infectious process/pneumonia versus lung cancer.
Clinical correlation is recommended and a follow-up PET/CT or soft tissue sampling can be performed for further evaluation.
2. Faint pneumonitis in the left upper lobe.
3. Moderate to large colonic stool burden, which can be seen with constipation.
4. No CT evidence for metastatic disease in the chest, abdomen, or pelvis within the limitations of the lack of intravenous contrast.
5. Severe compression fracture of T8, which appears to be acute or subacute.
6. Moderate compression fracture of T9 and mild compression fracture of L5 are age-indeterminate.
PLAN:
1. Lung mass, h/o smoking and woodworking
Pulmonary consult appreciated.
Continue abx for pna
strep/legionella antigens negative.
sputum culture - only oral cale growth.
May require bronchoscopy pending clinical course, pulm following, but if patient improves with abx then can be deferred.
2. Compression Fx. unclear causes. Has been on steroids for 5 months.
Had scheduled visit with [facility] consult appreciated - pt not interested in brace. No acute intervention
Pain control multimodal - tylenol, lidocaine patch, narcs.
3. Vasculitis, chronic issue
Continue steroids
4. CKD, baseline BUN/Creat ~40s/1.5, he appears to be at baseline
Oral fluids
Check daily
5. UA shows Occult blood, RBCs, and a few jackson.
Antibiotics for PNA should cover for now
Follow culture results
6. Leukocytosis Could be steroids, but also worsening infection.
BP and pulse OK, no signs of sepsis
improved w/ IV abx.
Anticipated Discharge: 24 - 48 hours
Subjective/Interval History
-
Date of Service: December 04, 2023
pt states pain related to compression frx most concerning but improved with multimodal analgesia
no sob, or fever
Objective Data
-
Labs:
Laboratory Results
12/04/23
05:02
WBC 10.9 H
Hgb 8.4 L
Hct 25.0 L
Plt Count 214
Sodium 132 L
Potassium 4.8
Chloride 102
Carbon Dioxide 24
BUN 56 H
Creatinine 1.6 H
Glucose 138 H
Calcium 9.1
Total Bilirubin 0.3
AST 18
ALT 19
Alkaline Phosphatase 144 H
Vital Signs:
Vital Signs
Temp Pulse Resp BP Pulse Ox
98.4 F 71 18 141/77 100
12/04/23 08:05 12/04/23 08:05 12/04/23 08:05 12/04/23 08:05 12/04/23 09:24
I&O
12/03/23 12/04/23 12/05/23
06:59 06:59 06:59
Intake Total 1230 / 1230
Output Total 900 / 900
Balance 330 / 330
Review of Systems
-
History Source: Patient
All other systems: Reviewed and negative
Musculoskeletal: Reports Other (back pain)
Physical Exam
-
General: Well Developed and No Apparent Distress
HEENT: Normocephalic, Atraumatic and Moist Mucous Membranes
Respiratory: Clear to Auscultation
Cardiac: Regular Rhythm and S1/S2; Negative Murmur, Rub or Gallop
GI: Soft, Nontender, Nondistended and Normal Bowel Sounds; Negative Organomegaly
Rectal: Deferred by Provider
Musculoskeletal: No Clubbing, No Cyanosis and No Edema
Skin: Negative Rash
Neuro: Nonfocal/Grossly Intact
Data Reviewed
-
Labs: Labs Reviewed by me
[2023-12-04 15:06] LABS: Glucose - Point of Care 455 mg/dl (70-99)
[2023-12-04 15:38] LABS: Glucose 349 mg/dl (70-99)
[2023-12-04] MEDS: ZOFRAN 4 MG IV (15:41)
[2023-12-04] MEDS: NOVOLOG FLEXPEN-LOW RESISTANCE 4 UNITS SC (15:44)
[2023-12-04 16:05] VITALS: BP 123/73
[2023-12-04 17:10] LABS: Glucose - Point of Care 392 mg/dl (70-99)
[2023-12-04] MEDS: NOVOLOG FLEXPEN-LOW RESISTANCE 5 UNITS SC (17:19)
[2023-12-04] MEDS: NON-FORMULARY ITEM PO ×4 (17:55→17:57)
[2023-12-04] MEDS: NON-FORMULARY ITEM 30 MG PO (19:39)
[2023-12-04 21:10] LABS: Glucose - Point of Care 160 mg/dl (70-99)
[2023-12-04 23:00] VITALS: BP 109/53
[2023-12-05] MEDS: DILAUDID 0.5 MG IV ×4 (02:54→21:44)
[2023-12-05] MEDS: PERCOCET 5/325 2 TABLET PO ×3 (05:13→18:20)
[2023-12-05 05:59] LABS: % Basophils 0.3 % (0-2); % Eosinophils 0.1 % (0-6); % Immature Granulocytes 8.2 % (0-0.5); % Lymphocytes 3.2 % (20.5-51.1); % Monocytes 3.2 % (1.7-9.3); Absolute Immature Granulocytes 1.1 10^3/uL (0-0.05); Absolute Lymphocytes 0.4 10^3/uL (1.2-3.4); Absolute Monocytes 0.4 10^3/uL (0.1-0.6); Absolute Neutrophils 11.3 10^3/uL (1.4-6.5); Hemoglobin 8.9 g/dL (13.0-18.0); Mean Corpuscular Hgb 30.4 pg (27.0-31.0); Mean Corpuscular Volume 92.2 fL (80.0-94.0); Mean Platelet Volume 10.2 fL (7.4-10.4); Nucleated Red Blood Cells % 0 % (-); Platelet Count 238 10^3/uL (130-400); Red Blood Cell Count 2.93 10^6/uL (4.70-6.10); Red Cell Dist. Width 14.8 % (11.5-14.5); White Blood Cell Count 13.3 10^3/uL (4.8-10.8)
[2023-12-05 06:00] VITALS: BMI 21.9
[2023-12-05 06:34] LABS: ALT (SGPT) 23 U/L (0-50); AST (SGOT) 19 U/L (17-59); Albumin 3.4 g/dl (3.5-5.0); Alkaline Phosphatase 153 U/L (38-126); Blood Urea Nitrogen 57 mg/dl (9-20); Calcium 9.9 mg/dl (8.4-10.2); Carbon Dioxide 27 mmol/L (22-30); Chloride 96 mmol/L (98-107); Estimated Creatinine Clearance 44 ml/min; Glucose 146 mg/dl (70-99); Sodium 132 mmol/L (135-145); Total Bilirubin 0.5 mg/dl (0.2-1.3); eGFR 48.41
[2023-12-05 06:41] LABS: Potassium 5.3 mmol/L (3.5-5.1)
[2023-12-05 07:25] VITALS: BP 128/70
[2023-12-05 08:01] LABS: Glucose - Point of Care 129 mg/dl (70-99)
[2023-12-05] MEDS: NON-FORMULARY ITEM 30 MG PO ×2 (08:49→19:43)
[2023-12-05] MEDS: NORVASC 5 MG PO (08:50)
[2023-12-05] MEDS: DELTASONE 60 MG PO (08:50)
[2023-12-05] MEDS: TYLENOL PO ×3 (08:50→21:44)
[2023-12-05] MEDS: MEPRON SUSPENSION 750 MG PO ×2 (08:51→19:43)
[2023-12-05] MEDS: VIBRAMYCIN 100 MG PO ×2 (08:51→19:42)
[2023-12-05] MEDS: NOVOLOG FLEXPEN 4 UNITS SC ×3 (08:52→18:22)
[2023-12-05] MEDS: LIDOCAINE 4% PATCH TOPICAL (08:52)
[2023-12-05] MEDS: MAXIPIME 1000 MG IV ×2 (08:52→16:01)
[2023-12-05] MEDS: STERILE WATER FOR INJECTION 10 ML IV ×2 (08:52→16:01)
[2023-12-05] MEDS: NOVOLOG FLEXPEN-LOW RESISTANCE SC (08:53)
--- NOTE | 2023-12-05 08:58 | W.PN.PUL.V3 ---
Today's Communication / Plan
-
Wean oxygen
Continue antibiotics
Analgesia per primary service
DVT prophylaxis if bedridden
Assessment
-
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
12/03/23.
Lung mass/consolidation
Compression fracture-has been on steroids for 5 months
Recently diagnosed vasculitis
Leukocytosis
Anemia-hemoglobin 10.4-normocytic
Hyperglycemia
Conditions present prior to admission:
Newly diagnosis vasculitis-Telma's.
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
Cigarette smoker.
Chronic kidney disease baseline serum creatinine 1.5.
Finger amputation.
Diabetes.
Hypertension.
Plan
Recent history of vasculitis, chronic high-dose steroids, compression fractures and CT chest with dense consolidation reviewed
Dense consolidation may be infectious, however, with heavy smoking history malignancy is a possibility as well as less likely pulmonary renal syndrome related
Continue supplemental oxygen as needed
Incentive spirometry encouraged
Mucolytic's
Nebulizers if needed
Note the patient's sputum culture-poor specimen and cultures not completed
Empiric antibiotics-recommend extended finite course
Urine Legionella and streptococcal antigen negative
Cover atypicals as well
PJP prophylaxis ongoing
Follow radiographically
Chest x-ray in several days and likely outpatient CT chest
If infiltrate does not improve with antibiotics then bronchoscopy/biopsy will likely be indicated in addition to PET scan, etc.-reviewed with patient as well as primary team
Follow blood sugar
Insulin supplementation as needed
Monitor hemoglobin
Transfuse if needed
Smoking cessation counseling ongoing
DVT prophylaxis recommended-now patient out of bed and somewhat ambulatory
Outpatient pulmonary [id number] PFTs, radiographic follow-up and consideration towards biopsy
Diagnostic data:
Chest x-ray 11/30/2023-right upper lobe consolidation suspicious for pneumonia
CT chest abdomen and pelvis 12/02/23-6 cm right upper lobe dense consolidation, small and nodular consolidations inferior right upper lobe, faint pneumonitis left upper lobe, no lymphadenopathy, constipation suspected, no CT evidence for metastatic
disease chest abdomen or pelvis, severe compression fracture T8 which appears acute or subacute
Renal biopsy 10/05/2023-left renal parenchymal biopsy performed by interventional radiology
Renal biopsy 10/05/2023-consistent with vasculitis-sent to [facility] renal pathology for processing-focal crescentic glomerulonephritis PR3-ANCA associated, tubular atrophy and interstitial fibrosis
Subjective Data
-
Date of Service:
Date of Service: December 05, 2023
Chief Complaint: Pulmonary Follow Up and Dyspnea Follow Up
Subjective:
Pain without change, no complaints of shortness of breath, chest congestion, productive cough
Review of Systems
General: Other ( per HPI)
Objective Data
Data Reviewed
Vital Signs / I&O:
Vital Signs
Temp Pulse Resp BP Pulse Ox
98.1 F 63 18 128/70 100
12/05/23 07:25 12/05/23 07:25 12/05/23 07:25 12/05/23 07:25 12/05/23 07:25
Intake and Output
12/04/23 12/05/23 12/06/23
06:59 06:59 06:59
Intake Total 1230 / 1230 1860 / 1860
Output Total 900 / 900 325 / 325
Balance 330 / 330 1535 / 1535
SaO2: 100
Physical Exam
General: Respiratory Distress (n) and Comfortable
HEENT: Normocephalic, Anicteric and Moist Mucous Membranes
Cardiovascular: Regular Rhythm
Respiratory: Wheeze (n), Crackles (n), Rhonchi (n), Non-Labored Respirations, Accessory Resp Muscle Use (n) and Stridor (n)
GI: Soft, Non Distended and Non Tender
Neurology: Awake, Alert and No Motor Deficits
Skin: Warm, Good Color, Cyanosis (n), Jaundice (n) and Rash (n)
Labs/Micro/Reports
Lab Data
12/05/23 04:57
12/05/23 04:57
Microbiology
12/03/23 11:40 Urine Legionella Urinary Antigen - Final
Negative for Legionella pneumophila Serogroup 1 antigen.
A negative result does not rule out the possiblity of
Legionella infection due to other serogroups or species of
Legionella. Clinical correlation is recommended.
12/03/23 11:40 Urine Streptococcus pneumoniae Antigen (M - Final
Negative for Streptococcus pneumoniae antigen.
A negative result does not exclude infection with
Streptococcus pneumoniae. Clinical correlation is
recommended.
12/03/23 06:50 Sputum Respiratory Culture - Final
12/03/23 06:50 Sputum Gram Stain - Final
[2023-12-05] MEDS: ZOFRAN 4 MG IV (10:08)
[2023-12-05 12:38] LABS: Glucose - Point of Care 234 mg/dl (70-99)
[2023-12-05] MEDS: NOVOLOG FLEXPEN-LOW RESISTANCE 2 UNITS SC (13:09)
[2023-12-05] MEDS: LOKELMA 10 GRAM PO (14:40)
[2023-12-05 15:35] VITALS: BP 119/54
[2023-12-05] MEDS: MIRALAX 17 GRAMS PO (16:01)
--- NOTE | 2023-12-05 16:41 | CM ---
Maintained on IV antibiotics.
Offered VN he declined.
PLAN Home no needs
--- NOTE | 2023-12-05 16:44 | W.PN.HOSP.TC ---
Addendum entered and electronically signed by Juan Alberto MD 12/06/23 15:20:
Mild hyponatremia noted.
Original Note:
Today's Communication/Plan
-
Continue IV antibiotics
Continue current analgesic regimen
Add bowel regimen.
Assessment / Plan
Assessment / Plan
IMPRESSION:
Right upper lobe consolidation/mass.
Lower back pain secondary to compression fracture.
Conditions prior to admission:
Recently diagnosed Telma's granulomatosis.
Glomerulonephritis? CKD 2�3
Anemia of chronic disease.
IDDM
Tobacco smoker
Hypertension
CT scan
1. Right upper lobe dense consolidative opacity measuring 6.0 cm for which differential considerations would include an infectious process/pneumonia versus lung cancer.
Clinical correlation is recommended and a follow-up PET/CT or soft tissue sampling can be performed for further evaluation.
2. Faint pneumonitis in the left upper lobe.
3. Moderate to large colonic stool burden, which can be seen with constipation.
4. No CT evidence for metastatic disease in the chest, abdomen, or pelvis within the limitations of the lack of intravenous contrast.
5. Severe compression fracture of T8, which appears to be acute or subacute.
6. Moderate compression fracture of T9 and mild compression fracture of L5 are age-indeterminate.
Plan
1. Lung mass, h/o smoking and woodworking
Pulmonary consult appreciated.
Continue abx for pna
strep/legionella antigens negative.
sputum culture - only oral cale growth.
May require bronchoscopy pending clinical course, pulm following, but if patient improves with abx then can be deferred.
2. Compression Fx. unclear causes. Has been on steroids for 5 months.
Had scheduled visit with [facility] consult appreciated - pt not interested in brace. No acute intervention
Pain control multimodal - tylenol, lidocaine patch, narcs.
3. Vasculitis, chronic issue
Continue prednisone
4. Glomera nephritis p-ANCA associated CKD, baseline BUN/Creat ~40s/1.5, he appears to be at baseline
Follow BMP
5. Leukocytosis Could be steroids, but also worsening infection.
BP and pulse OK, no signs of sepsis
improved w/ IV abx.
Anticipated Discharge: 24 - 48 hours
Subjective/Interval History
-
Date of Service: December 05, 2023
Objective Data
-
Labs:
Laboratory Results
12/05/23
04:57
WBC 13.3 H
Hgb 8.9 L
Hct 27.0 L
Plt Count 238
Sodium 132 L
Potassium 5.3 H
Chloride 96 L
Carbon Dioxide 27
BUN 57 H
Creatinine 1.6 H
Glucose 146 H
Calcium 9.9
Total Bilirubin 0.5
AST 19
ALT 23
Alkaline Phosphatase 153 H
Vital Signs:
Vital Signs
Temp Pulse Resp BP Pulse Ox
97.5 F 62 18 119/54 98
12/05/23 15:35 12/05/23 15:35 12/05/23 15:35 12/05/23 15:35 12/05/23 15:35
I&O
12/04/23 12/05/23 12/06/23
06:59 06:59 06:59
Intake Total 1230 / 1230 1860 / 1860
Output Total 900 / 900 325 / 325
Balance 330 / 330 1535 / 1535
Physical Exam
-
General: Well Developed and No Apparent Distress
HEENT: Normocephalic, Atraumatic and Moist Mucous Membranes
Respiratory: Clear to Auscultation
Cardiac: Regular Rhythm and S1/S2; Negative Murmur, Rub or Gallop
GI: Soft, Nontender, Nondistended and Normal Bowel Sounds; Negative Organomegaly
Rectal: Deferred by Provider
Musculoskeletal: No Clubbing, No Cyanosis and No Edema
Skin: Negative Rash
Neuro: Nonfocal/Grossly Intact
[2023-12-05 17:36] LABS: Glucose - Point of Care 260 mg/dl (70-99)
[2023-12-05] MEDS: NOVOLOG FLEXPEN-LOW RESISTANCE 3 UNITS SC (18:22)
[2023-12-05] MEDS: PEPCID 20 MG PO (18:43)
[2023-12-05] MEDS: COLACE 100 MG PO (19:43)
[2023-12-05 21:08] LABS: Glucose - Point of Care 184 mg/dl (70-99)
[2023-12-05 23:30] VITALS: BP 106/49
[2023-12-06] MEDS: MAXIPIME 1000 MG IV ×2 (00:11→08:39)
[2023-12-06] MEDS: PERCOCET 5/325 2 TABLET PO ×3 (00:11→14:44)
[2023-12-06] MEDS: STERILE WATER FOR INJECTION 10 ML IV ×2 (00:12→08:39)
[2023-12-06] MEDS: DILAUDID 0.5 MG IV ×2 (04:38→07:46)
[2023-12-06 06:00] VITALS: BMI 21.7
[2023-12-06 07:53] LABS: Glucose - Point of Care 115 mg/dl (70-99)
[2023-12-06 07:57] LABS: % Basophils 0.4 % (0-2); % Eosinophils 0.2 % (0-6); % Immature Granulocytes 9.3 % (0-0.5); % Lymphocytes 6.9 % (20.5-51.1); % Monocytes 4.8 % (1.7-9.3); % Neutrophils 78.4 % (42.2-75.2); Absolute Lymphocytes 0.7 10^3/uL (1.2-3.4); Absolute Monocytes 0.5 10^3/uL (0.1-0.6); Hematocrit 25.6 % (39.0-52.0); Hemoglobin 8.4 g/dL (13.0-18.0); Mean Corp Hgb Conc. 32.8 g/dL (33.0-37.0); Mean Corpuscular Hgb 30.4 pg (27.0-31.0); Mean Corpuscular Volume 92.8 fL (80.0-94.0); Mean Platelet Volume 10.3 fL (7.4-10.4); Nucleated Red Blood Cells % 0 % (-); Platelet Count 206 10^3/uL (130-400); Red Blood Cell Count 2.76 10^6/uL (4.70-6.10); Red Cell Dist. Width 14.6 % (11.5-14.5); White Blood Cell Count 10.2 10^3/uL (4.8-10.8)
[2023-12-06 08:19] VITALS: BP 133/67
[2023-12-06 08:24] LABS: Blood Urea Nitrogen 51 mg/dl (9-20); Calcium 9.4 mg/dl (8.4-10.2); Carbon Dioxide 30 mmol/L (22-30); Chloride 98 mmol/L (98-107); Estimated Creatinine Clearance 47 ml/min; Glucose 86 mg/dl (70-99); Potassium 4.9 mmol/L (3.5-5.1); Sodium 132 mmol/L (135-145); eGFR 52.31
[2023-12-06] MEDS: LIDOCAINE 4% PATCH TOPICAL (08:25)
[2023-12-06] MEDS: NOVOLOG FLEXPEN-LOW RESISTANCE SC (08:26)
[2023-12-06] MEDS: MIRALAX 17 GRAMS PO (08:32)
[2023-12-06] MEDS: NON-FORMULARY ITEM 30 MG PO (08:35)
[2023-12-06] MEDS: NORVASC 5 MG PO (08:36)
[2023-12-06] MEDS: VIBRAMYCIN 100 MG PO (08:36)
[2023-12-06] MEDS: COLACE 100 MG PO (08:36)
[2023-12-06] MEDS: DELTASONE 60 MG PO (08:36)
[2023-12-06] MEDS: NOVOLOG FLEXPEN 4 UNITS SC ×2 (08:40→12:50)
[2023-12-06] MEDS: MEPRON SUSPENSION 750 MG PO (08:40)
[2023-12-06] MEDS: TYLENOL PO (08:43)
[2023-12-06] MEDS: ZOFRAN 4 MG IV (09:32)
--- NOTE | 2023-12-06 09:48 | PN.CDI ---
CDI
- -
CDI:
Physician Documentation Request
Admit Date: 12/02/23 20:00
Dear Doctor Remy,
Clinical Indicators:
Patient admitted with right upper lobe consolidation/mass & lower back pain.
Sodium levels:
12/02/23 12/04/23 12/05/23
15:49 05:02 04:57
Sodium 134 L 132 L 132 L
12/06/23
06:49
Sodium 132 L
Based on the above, could you clarify in the progress notes, the appropriate diagnosis, if significant, that supports the above lab abnormalities and additional evaluation, monitoring and/or treatment rendered:
Hyponatremia
Abnormal lab values, clinically insignificant
Other
Use of terms such as suspected, likely, concern for, or probable (associated with a specific diagnosis that is being evaluated, monitored, or treated as if it exists) are acceptable and can be coded in the inpatient setting, when documented at the
time of discharge.
Thank you,
ALISA Juan RN
CDI Specialist
available via tiger text
Please use your independent medical judgment in providing your response.
--- NOTE | 2023-12-06 09:54 | W.PN.PUL.V3 ---
Today's Communication / Plan
-
Increase activity
Convert IV antibiotics to oral antibiotics soon-extended course
Outpatient chest x-ray in 2 weeks with pulmonary follow-up
Assessment
-
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
12/03/23.
Lung mass/consolidation
Compression fracture-has been on steroids for 5 months
Recently diagnosed vasculitis
Leukocytosis
Anemia-hemoglobin 10.4-normocytic
Hyperglycemia
Conditions present prior to admission:
Newly diagnosis vasculitis-Telma's.
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
Cigarette smoker.
Chronic kidney disease baseline serum creatinine 1.5.
Finger amputation.
Diabetes.
Hypertension.
Plan
Recent history of vasculitis, chronic high-dose steroids, compression fractures and CT chest with dense consolidation reviewed
Dense consolidation may be infectious, however, with heavy smoking history malignancy is a possibility as well as less likely pulmonary renal syndrome related
Wean FiO2
Incentive spirometry encouraged
Mucolytic's
Nebulizers if needed
Note the patient's sputum culture-poor specimen and cultures not completed
Empiric antibiotics-recommend extended finite course-can switch to oral for an additional 7-10 days reviewed with hospitalist
Urine Legionella and streptococcal antigen negative
Cover atypicals as well
PJP prophylaxis ongoing
Follow radiographically-this can be completed as an outpatient
Chest x-ray in several days and likely outpatient CT chest
If infiltrate does not improve with antibiotics then bronchoscopy/biopsy will likely be indicated in addition to PET scan, etc.-reviewed with patient as well as primary team
Follow blood sugar
Insulin supplementation as needed
Monitor hemoglobin
Transfuse if needed
Smoking cessation counseling ongoing
DVT prophylaxis recommended-now patient out of bed and somewhat ambulatory
If discharged obtain chest x-ray in 2 weeks with pulmonary follow-up
Outpatient pulmonary [id number] PFTs, radiographic follow-up and consideration towards biopsy
Diagnostic data:
Chest x-ray 11/30/2023-right upper lobe consolidation suspicious for pneumonia
CT chest abdomen and pelvis 12/02/23-6 cm right upper lobe dense consolidation, small and nodular consolidations inferior right upper lobe, faint pneumonitis left upper lobe, no lymphadenopathy, constipation suspected, no CT evidence for metastatic
disease chest abdomen or pelvis, severe compression fracture T8 which appears acute or subacute
Renal biopsy 10/05/2023-left renal parenchymal biopsy performed by interventional radiology
Renal biopsy 10/05/2023-consistent with vasculitis-sent to [facility] renal pathology for processing-focal crescentic glomerulonephritis PR3-ANCA associated, tubular atrophy and interstitial fibrosis
Subjective Data
-
Date of Service:
Date of Service: December 06, 2023
Chief Complaint: Pulmonary Follow Up and Dyspnea Follow Up
Subjective:
Back pain without change, no increase shortness of breath, chest congestion, productive cough, or abdominal pain
Review of Systems
General: Other (Per HPI)
Objective Data
Data Reviewed
Vital Signs / I&O:
Vital Signs
Temp Pulse Resp BP Pulse Ox
98.1 F 64 18 133/67 98
12/06/23 08:19 12/06/23 08:19 12/06/23 08:19 12/06/23 08:19 12/06/23 08:19
Intake and Output
12/05/23 12/06/23 12/07/23
06:59 06:59 06:59
Intake Total 1860 / 1860 1080 / 1080
Output Total 325 / 325
Balance 1535 / 1535 1080 / 1080
SaO2: 98
Physical Exam
General: Respiratory Distress (n) and Comfortable
HEENT: Normocephalic, Anicteric and Moist Mucous Membranes
Cardiovascular: Regular Rhythm
Respiratory: Wheeze (n), Crackles (n), Rhonchi (n), Non-Labored Respirations, Accessory Resp Muscle Use (n) and Stridor (n)
GI: Soft, Non Distended and Non Tender
Neurology: Awake, Alert and No Motor Deficits
Skin: Warm, Good Color, Cyanosis (n), Jaundice (n) and Rash (n)
Labs/Micro/Reports
Lab Data
12/06/23 06:49
12/06/23 06:49
Microbiology
12/03/23 11:40 Urine Legionella Urinary Antigen - Final
Negative for Legionella pneumophila Serogroup 1 antigen.
A negative result does not rule out the possiblity of
Legionella infection due to other serogroups or species of
Legionella. Clinical correlation is recommended.
12/03/23 11:40 Urine Streptococcus pneumoniae Antigen (M - Final
Negative for Streptococcus pneumoniae antigen.
A negative result does not exclude infection with
Streptococcus pneumoniae. Clinical correlation is
recommended.
12/03/23 06:50 Sputum Respiratory Culture - Final
12/03/23 06:50 Sputum Gram Stain - Final
[2023-12-06 12:20] LABS: Glucose - Point of Care 231 mg/dl (70-99)
[2023-12-06] MEDS: NOVOLOG FLEXPEN-LOW RESISTANCE 2 UNITS SC (12:50)
--- NOTE | 2023-12-06 12:50 | W.DS.TRANS ---
DC Summary - [employer]
-
Discharge Instructions:
Discharge Diagnosis/Procedures IMPRESSION:
Right upper lobe consolidation/mass.
Lower back pain secondary to compression
fracture.
Conditions prior to admission:
Recently diagnosed Telma's granulomatosis.
Glomerulonephritis? CKD 2�3
Anemia of chronic disease.
IDDM
Tobacco smoker
Hypertension
Diet Diabetic, Carb Controlled
Instructions:
Stand-Alone Forms:
Changes to Home Medications: Yes
Discharge Medications:
DC Medications w/original date entered in [facility]
acetaminophen 500 mg tablet (Tylenol Extra Strength) 1,000 mg PO BIDPRN PRN mild pain 10/04/23
amlodipine 5 mg tablet 5 mg PO DAILY Blood Pressure 10/04/23
prednisone 20 mg tablet 60 mg (3 x 20 mg) PO DAILY 14 days #42 tabs 10/06/23
atovaquone 750 mg/5 mL oral suspension 750 mg PO BID 12/02/23
avacopan 10 mg capsule (Tavneos) 30 mg PO BID vasculitis 12/02/23
insulin aspart U-100 100 unit/mL (3 mL) subcutaneous pen (Novolog FlexPen U-100 Insulin aspart) 4 - 6 unit SC AC Diabetes 12/02/23
cefuroxime axetil 500 mg tablet 500 mg PO BID 7 days #14 tabs 12/06/23
docusate sodium 100 mg capsule 100 mg PO BID #60 caps 12/06/23
doxycycline hyclate 100 mg capsule 100 mg PO BID #14 caps 12/06/23
famotidine 20 mg tablet 20 mg PO QPM #30 tabs 12/06/23
oxycodone-acetaminophen 5 mg-325 mg tablet 2 tab PO Q4HPRN PRN severe pain #30 tabs 12/06/23
polyethylene glycol 3350 17 gram oral powder packet (HealthyLax) 17 g PO DAILY #30 ea 12/06/23
Home Medication Changes
Additional 7 days of antibiotics.
Pending Results: No
[2023-12-06 14:29] VITALS: BP 129/81
--- NOTE | 2023-12-06 14:39 | CM ---
MD entered order for discharge.
Spoke with patient he said he was ready for discharge.
His will drive him home.
Offered VN he requested [facility] referral placed in care port.
PLAN Home with [facility] fax [phone]
== END 2023-12-06 15:05 | disposition home health service (06) | DRG 194 ==
LOC: 4 EAST ACU 20:00
PROVIDERS: Internal Medicine; ADMITTING PHYSICIAN Internal Medicine; ATTENDING PHYSICIAN Internal Medicine; CONSULT PHYSICIAN Orthopaedic Surgery; EMERGENCY PHYSICIAN Emergency Medicine; OTHER PHYSICIAN Internal Medicine Critical Care Medicine
DX: J18.9 Pneumonia, unspecified organism (principal); D84.9 Immunodeficiency, unspecified; S32.000A Wedge compression fracture of unspecified lumbar vertebra, initial encounter for closed fracture; S22.000A Wedge compression fracture of unspecified thoracic vertebra, initial encounter for closed fracture; E87.1 Hypo-osmolality and hyponatremia; M30.0 Polyarteritis nodosa; M31.30 Wegener's granulomatosis without renal involvement; J98.4 Other disorders of lung; F17.210 Nicotine dependence, cigarettes, uncomplicated; N18.30 Chronic kidney disease, stage 3 unspecified; E11.65 Type 2 diabetes mellitus with hyperglycemia; E11.22 Type 2 diabetes mellitus with diabetic chronic kidney disease; I12.9 Hypertensive chronic kidney disease with stage 1 through stage 4 chronic kidney disease, or unspecified chronic kidney disease; D63.1 Anemia in chronic kidney disease; Z79.4 Long term (current) use of insulin
CPT/HCPCS: 71250; 74176; 80048; 80053; 81003; 81015; 82947; 82962; 85025; 87205; 87449; 87899; 96365; 96375; 97116; 97163; 97167; 97530; 99285